=== PATIENT | male | born 1950 | race Caucasian/White ===

== ENCOUNTER 2020-01-31 10:10 | Emergency (ER) | payer MEDICARE, OTHER, SELFPAY ==
[2020-01-31 10:19] VITALS: BP 156/93; PULSE 58; RESP 19; TEMP 36.9; O2SAT 97; BMI 37.6
--- NOTE | 2020-01-31 10:23 | DI.RAD.S_ITS ---
PROCEDURE: XR WRIST LT MIN 3V INDICATIONS: wrist pain TECHNIQUE: 3 views of the wrist were acquired. COMPARISON: None. FINDINGS: Bones: There is a comminuted, displaced fracture of the distal radius which likely extends to the radiocarpal joint. No other fracture or dislocation. Soft tissues: No suspicious soft tissue calcifications. IMPRESSION: Comminuted, displaced, intra-articular distal radial fracture. Dictated by: Karely Moya M.D. on 01/31/2020 at 9:36 Approved by: Karely Moya M.D. on 01/31/2020 at 9:37
--- NOTE | 2020-01-31 10:29 | ED.UPPEXIN ---
HPI - Extremity Injury (Upper) General Chief Complaint: Extremity Injury, Upper Stated Complaint: lt wrist fell out of shower Time Seen by Provider: 01/31/20 10:29 Source: patient Mode of arrival: Family Vehicle Limitations: no limitations History of Present Illness HPI narrative: 69-year-old gentleman with a distant history of colon cancer and bypass surgery had a mechanical fall slipping getting out of the shower landing on an outstretched left wrist. He did bump his head on the wall as he was coming down and has an abrasion to the right elbow from lifting himself up. He did not lose consciousness is not complaining of headache or neck pain, no rib pain, tachypnea chest pain adamantly denies any syncope or presyncope related to the fall. He was able to ambulate is not complaining of axial skeleton pain or lower extremity issues. Related Data Previous Rx's Medication Instructions Recorded hydrocodone-acetaminophen [[place]] 1 tab PO Q8H PRN #10 tab 01/31/20 Review of Systems Review of Systems Narrative: All systems reviewed and are unremarkable except as noted in HPI and below Patient History Medical History (Updated 01/31/20 @ 11:50 by Lou Austin MD) ASCVD (arteriosclerotic cardiovascular disease) (Acute) Colon cancer (Acute) Surgical History (Updated 01/31/20 @ 11:00 by Lou Austin MD) Hx of CABG (Acute) Social History Smoking Status: Never smoker Smoking Status: Never smoker alcohol intake frequency: holidays/special occasions only Substance Use Type: does not use Exam Narrative Exam Narrative: General: Healthy appearing, in no acute distress. Able to give a complete and coherent history. Well-nourished well-developed HEENT: Moist mucous membranes, normal sclera with reactive pupils, abrasion to the right evangelical area with minor swelling Neck: No JVD, supple, no paraspinous muscle tenderness and no cervical spine point tenderness Respiratory: Lungs are clear to auscultation, no wheezing no rales no rhonchi. Full and symmetrical air movement. No bruising or contusion to ribcage or abdominal wall Cardiac: Regular rate and rhythm no murmurs no bruits Abdomen: Soft nontender good bowel tones, no flank pain Skin: Warm and dry, no rashes Neurologic: Grossly neurologically intact with no obvious asymmetries or abnormalities Extremities: Left upper extremity with tenderness at the distal radius, neurovascularly intact, no snuffbox tenderness. Full joint range in mobility at elbow and shoulder bilaterally. Right elbow has an abrasion Psych: Cooperative, appropriate insight and affect Initial Vital Signs Initial Vital Signs: Vital Signs Temperature 98.4 F 01/31/20 10:19 Pulse Rate 58 L 01/31/20 10:19 Respiratory Rate 19 01/31/20 10:19 Blood Pressure 156/93 H 01/31/20 10:19 Pulse Oximetry 97 01/31/20 10:19 Course Course Course Narrative: Splint placement: Left upper extremity, sugar-tong splint for distal radius fracture Splint is placed by ER doctor. Ortho glass with elestic wrap Neurovascularly intact after splint placement Sling given for comfort, remains neurovascularly intact with the sling in place Orders Ordered: ED Orders 01/31/20 10:23 XR wrist LT min 3V Stat Discontinued Medications Acetaminophen (Tylenol) 325 mg PO NOW ONE Stop: 01/31/20 11:33 Last Admin: 01/31/20 11:41 Dose: 325 mg Documented by: BTONER Ibuprofen (Advil) 400 mg PO NOW ONE Stop: 01/31/20 11:33 Last Admin: 01/31/20 11:40 Dose: 400 mg Documented by: BTONER Vital Signs Vital signs: Vital Signs - 8 hr 01/31/20 10:19 Temperature 98.4 F Pulse Rate 58 L Respiratory Rate 19 Blood Pressure 156/93 H Pulse Oximetry 97 MDM - Extremity Injury (Upper) Medical Records Attestation: I reviewed the patient's medical records. Imaging Data wrist: Radiologist's Impression: IMPRESSION: Comminuted, displaced, intra-articular distal radial fracture. Dictated by: Karely Moya M.D. on 01/31/2020 at 9:36 MDM Narrative Medical decision making narrative: 69-year-old gentleman with a mechanical fall on an outstretched hand, non dominant side. Small abrasion to the head however aside from age alone he meets no criteria for CT scanning. We shared decision making we opted to not proceed with head CT 1100 case is reviewed with he will review films and call me back. Patient is currently in minimal pain not requesting pain medications of any sort and declines ice at this time. 1120 Dr Henao reviewed films. Sugar tong splint, call saturday for office follow up Discharge Plan Departure Patient Disposition: Home Clinical Impression: Fracture of distal end of radius, Fall, Contusion of elbow, Contusion of head Instructions: DI for Distal Radius Fracture Activity Restrictions/Additional Instructions: Thank you for coming in today I am sorry that you fell it does not look like you sustained a significant head or spine injury. You did however break your left wrist. , our on-call orthopedist today, has reviewed the films with me and agrees that it is safe to discharge to home. Your placed in a splint here in the emergency department, please leave that splint in place until removed by the orthopedist office For pain control keeping the arm elevated will certainly help, using 400 mg of ibuprofen and 1 [id number] Tylenol every 6 hours will be helpful for pain. For severe pain you can take 1 [place] along with the ibuprofen. The sling is for comfort given the weight of the cast. Please call 's office on Saturday to arrange for a follow-up appointment and definitive care of your distal radius fracture. If you find that the pain is uncontrolled. Your noticing new signs or symptoms, having any other complaints from your fall please return to the ER in a.m. happy to re-evaluate I hope you heal quickly Prescriptions: New hydrocodone-acetaminophen [[place]] 5-325 mg tablet 1 tab PO Q8H PRN (Reason: pain) Qty: 10 RF: 0 Referrals: Cristin Henao MD [Physician] -
[2020-01-31] MEDS: IBUPROFEN 400 MG TABLET PO (11:40)
[2020-01-31] MEDS: ACETAMINOPHEN 325 MG TABLET PO (11:41)
== END 2020-01-31 11:56 | disposition home or self-care (01) ==
PROVIDERS: Emergency Provider Emergency Medicine
DX: S52.502A Unspecified fracture of the lower end of left radius, initial encounter for closed fracture (principal); S50.01XA Contusion of right elbow, initial encounter; S00.93XA Contusion of unspecified part of head, initial encounter; W18.2XXA Fall in (into) shower or empty bathtub, initial encounter
CPT/HCPCS: 73110; 99283

== ENCOUNTER 2020-06-19 09:59 | Emergency (ER) | payer MEDICARE, OTHER, SELFPAY ==
[2020-06-19 10:00] VITALS: BP 174/96; PULSE 53; RESP 16; TEMP 36.4; O2SAT 97; BMI 36.9
[2020-06-19 10:53] LABS: Add Manual Diff / Slide Review NO; Basophils Absolute Auto 100 /uL (0-100); Eosinophils Absolute Auto 300 /uL (0-450); Eosinophils Percent Auto 3.1 % (2-4); Hematocrit 50.8 % (41-53); Hemoglobin 17.2 g/dL (13.5-17.5); Lymphocytes Absolute Auto 1600 /uL (1100-4500); Lymphocytes Percent Auto 17.1 % (25-40); Mean Corpuscular HGB Conc 33.9 % (30-36); Mean Corpuscular Hemoglobin 27.4 PG (26-34); Mean Corpuscular Volume 80.8 fL (80-100); Monocytes Absolute Auto 800 /uL (0-900); Monocytes Percent Auto 8.8 % (3-14); Neutrophils Absolute Auto 6400 /uL (1500-7000); Platelet Count 213 X10^3/uL (150-400); Red Blood Cell Count 6.29 X10^6/uL (4.5-5.9); Red Cell Distribution Width 14.5 % (11.6-14.8); White Blood Cell Count 9.2 X10^3/uL (4.5-11.0)
[2020-06-19 11:20] LABS: Alanine Aminotransferase 23 IU/L (<50); Albumin 4.1 g/dL (3.5-5.0); Albumin Globulin Ratio 1.3 (1.0-2.8); Alkaline Phosphatase 68 U/L (38-126); Aspartate Aminotransferase 29 IU/L (17-59); BUN Creatinine Ratio 17.1 (6-22); Bilirubin Total 1.3 mg/dL (0.2-1.3); Blood Urea Nitrogen 18 mg/dL (9-20); C-Reactive Protein Quant 0.6 mg/dL (<1.0); Calcium 9.9 mg/dL (8.4-10.2); Carbon Dioxide 24 mmol/L (22-32); Chloride 109 mmol/L (98-107); Estimated Glomerular Filt Rate > 60.0 mL/min (>60); Globulin 3.1 g/dL (1.7-4.1); Glucose 104 mg/dL (80-110); HEMOLYSIS < 15 (0-50); Potassium 4.1 mmol/L (3.4-5.1); Sodium 139 mmol/L (137-145); Total Protein 7.2 g/dL (6.3-8.2); Uric Acid 9.7 mg/dL (3.5-8.5)
--- NOTE | 2020-06-19 11:20 | ED_ITS ---
HPI - Extremity Problem <[facility] - Last Filed: 06/19/20 16:48> General Chief complaint: Extremity Problem,Nontraumatic Stated complaint: Thinks he has gout Lt foot Time Seen by Provider: 06/19/20 11:02 Source: patient Mode of arrival: Ambulatory Limitations: no limitations History of Present Illness HPI Narrative: The patient is a very pleasant 69-year-old male nonsmoker with history of CABG x3 who presents with a chief complaint of a painful toe. He states that he has had pain the base of his 1st toe left foot for about 3 weeks. He denies any fevers nausea vomiting or diarrhea. The pain does not radiate, states at that point. He has noticed some diffuse redness along the medial aspect of that digit. Denies any fevers nausea vomiting or diarrhea. He has been traveling thinks he might have gout. He denies any history of gout. He has not taken anything for the pain he has not tried rest ice compression elevation. He denies any falls or trauma. Related Data Previous Rx's Medication Instructions Recorded hydrocodone-acetaminophen [[place]] 1 tab PO Q8H PRN #10 tab 01/31/20 indomethacin 50 mg PO TID 5 Days #15 cap 06/19/20 Allergies Allergy/AdvReac Type Severity Reaction Status Date / Time No Known Drug Allergies Allergy Verified 06/19/20 10:17 Review of Systems <[facility] - Last Filed: 06/19/20 16:48> Review of Systems Narrative: GENERAL: Denies chills, fatigue, malaise, fever, sweats. HEENT: Denies sinus pain, ear pain, sore throat, difficulty swallowing, dizziness. RESPIRATORY: Denies dyspnea, cough, wheezing, hemoptysis, sputum. CARDIOVASCULAR: Denies chest pain, palpitations, orthopnea, edema, GASTROINTESTINAL: Denies nausea, vomiting, abdominal pain, diarrhea, constipation, melena. : Denies dysuria, frequency, incontinence, hematuria, urinary retention. MUSCULOSKELETAL: See HPI SKIN: See HPI NEUROLOGIC: Denies weakness, headache, numbness, change in speech, confusion, seizures, incoordination. PSYCHIATRIC: No concerning psychosocial issues. 12 point review of systems is negative except for those stated above Patient History <[facility] - Last Filed: 06/19/20 16:48> Medical History ASCVD (arteriosclerotic cardiovascular disease) (Acute) Colon cancer (Acute) Surgical History Hx of CABG (Acute) Social History Smoking Status: Never smoker Smoking Status: Never smoker alcohol intake frequency: holidays/special occasions only Substance Use Type: does not use Exam <JAYCE Amin - Last Filed: 06/19/20 16:48> Narrative Exam Narrative: GENERAL: This is a well-nourished, well-developed patient, in no acute distress HEAD: Atraumatic. Normocephalic. No temporal or scalp tenderness. EYES: Pupils equal round and reactive. Extraocular motions intact. No scleral icterus. No injection or drainage. ENT: Nose without bleeding, purulent drainage or septal hematoma. Wearing mask. Airway patent. NECK: Trachea midline. No JVD or lymphadenopathy. Supple, nontender, no meningeal signs. CARDIOVASCULAR: Regular rate and rhythm RESPIRATORY: Clear to auscultation. Breath sounds equal bilaterally. No wheezes, rales, or rhonchi. No cough. Increased respiratory effort. No accessory muscle use. GASTROINTESTINAL: Abdomen soft, non-tender, nondistended. No hepato- splenomegaly, or palpable masses. No guarding. Active bowel sounds all 4 quadrants. EXTREMITIES: Slight pain to palpation left great toe. Able to flex and extend against resistance. Skin exam as noted. Capillary refill less than 2 seconds. Positive pedal pulses. BACK: Nontender without deformity or crepitance. No flank tenderness. NEURO: AOx3. SKIN: Slight erythema noted on medial aspect of 1st MTP, left great toe Initial Vital Signs Initial Vital Signs: Vital Signs Temperature 97.6 F 06/19/20 10:00 Pulse Rate 53 L 06/19/20 10:00 Respiratory Rate 16 06/19/20 10:00 Blood Pressure 174/96 H 06/19/20 10:00 Pulse Oximetry 97 06/19/20 10:00 <Osman Marina MD - Last Filed: 06/19/20 19:05> Initial Vital Signs Initial Vital Signs: Vital Signs Temperature 97.6 F 06/19/20 10:00 Pulse Rate 53 L 06/19/20 10:00 Respiratory Rate 16 06/19/20 10:00 Blood Pressure 174/96 H 06/19/20 10:00 Pulse Oximetry 97 06/19/20 10:00 Course <Ginny AriasCHANNINGP-BC - Last Filed: 06/19/20 16:48> Orders Ordered: ED Orders 06/19/20 10:28 CRP [C-Reactive Protein Quant] Stat Complete Blood Count AUTO DIFF Stat Comprehensive Metabolic Panel Stat Erythrocyte Sedimentation Rate Stat Uric Acid Stat Urine Microscopic Stat Discontinued Medications Ketorolac Tromethamine (Toradol) 15 mg IV NOW ONE Stop: 06/19/20 10:34 Last Admin: 06/19/20 11:33 Dose: 15 mg Documented by: JOVI Methylprednisolone (Solu-Medrol 125 Mg Vial) 125 mg IV NOW ONE Stop: 06/19/20 10:34 Last Admin: 06/19/20 11:34 Dose: 125 mg Documented by: JOVI Reevaluation(s) Reevaluation #1: Patient told nursing that he was concerned about color of his urine. No urinary symptoms, no dysuria urgency or frequency. Urinalysis obtained, normal micro. States it was dark. When I was speaking with patient, he declined any further concerns beyond his foot. Discussed urinalysis results with patient. Vital Signs Vital signs: Vital Signs - 8 hr 06/19/20 11:53 Pulse Rate 54 L Respiratory Rate 18 Blood Pressure 151/77 H Pulse Oximetry 100 <Osman Marina MD - Last Filed: 06/19/20 19:05> Orders Ordered: ED Orders 06/19/20 10:28 CRP [C-Reactive Protein Quant] Stat Complete Blood Count AUTO DIFF Stat Comprehensive Metabolic Panel Stat Erythrocyte Sedimentation Rate Stat Uric Acid Stat Urine Microscopic Stat Discontinued Medications Ketorolac Tromethamine (Toradol) 15 mg IV NOW ONE Stop: 06/19/20 10:34 Last Admin: 06/19/20 11:33 Dose: 15 mg Documented by: JOVI Methylprednisolone (Solu-Medrol 125 Mg Vial) 125 mg IV NOW ONE Stop: 06/19/20 10:34 Last Admin: 06/19/20 11:34 Dose: 125 mg Documented by: BTONER Vital Signs Vital signs: Vital Signs - 8 hr 06/19/20 11:53 Pulse Rate 54 L Respiratory Rate 18 Blood Pressure 151/77 H Pulse Oximetry 100 MDM - Extremity (Nontraumatic) <MARLENA Amin- - Last Filed: 06/19/20 16:48> Lab Data Result diagrams: 06/19/20 10:28 06/19/20 10:28 Labs: Lab Results 06/19/20 06/19/20 06/19/20 Range/Units 10:28 10:28 10:28 WBC 9.2 (4.5-11.0) X10^3/uL RBC 6.29 H (4.5-5.9) X10^6/uL Hgb 17.2 (13.5-17.5) g/dL Hct 50.8 (41-53) % MCV 80.8 (80-100) fL MCH 27.4 (26-34) PG MCHC 33.9 (30-36) % RDW 14.5 (11.6-14.8) % Plt Count 213 (150-400) X10^3/uL Neut % (Auto) 70.0 (50-75) % Lymph % (Auto) 17.1 L (25-40) % [place] % (Auto) 8.8 (3-14) % Eos % (Auto) 3.1 (2-4) % Baso % (Auto) 1.0 (0-2) % Neut # (Auto) 6400 (5452-4639) /uL Lymph # (Auto) 1600 (9142-4223) /uL [place] # (Auto) 800 (0-900) /uL Eos # (Auto) 300 (0-450) /uL Baso # (Auto) 100 (0-100) /uL ESR 1 (0-15) MM/HR Sodium 139 (137-145) mmol/L Potassium 4.1 (3.4-5.1) mmol/L Chloride 109 H (98-107) mmol/L Carbon Dioxide 24 (22-32) mmol/L BUN 18 (9-20) mg/dL Creatinine 1.05 (0.66-1.25) mg/dL Estimated GFR > 60.0 (>60) mL/min BUN/Creatinine Ratio 17.1 (6-22) Glucose 104 (80-110) mg/dL Uric Acid 9.7 H (3.5-8.5) mg/dL Calcium 9.9 (8.4-10.2) mg/dL Total Bilirubin 1.3 (0.2-1.3) mg/dL AST 29 (17-59) IU/L ALT 23 (<50) IU/L Alkaline Phosphatase 68 (38-126) U/L C-Reactive Protein 0.6 (<1.0) mg/dL Total Protein 7.2 (6.3-8.2) g/dL Albumin 4.1 (3.5-5.0) g/dL Globulin 3.1 (1.7-4.1) g/dL Albumin/Globulin Ratio 1.3 (1.0-2.8) Urine RBC None seen (0-5/HPF) Urine WBC 0-1/hpf (0-5/HPF) Ur Squamous Epith Cells 0-1 /hpf (0-5/HPF) Urine Bacteria None seen (None) Ur Culture Indicated? Cult not indicated Urine Dip Bedside Urine Glucose Negative Bedside Urine Bilirubin - Negative Bedside Urine Ketone - Negative Urine Specific [place] 1.030 Bedside Urine Occult Blood ++ Bedside Urine pH 5.0 Bedside Urine Protein +/- 15 Bedside Urine Urobilinogen - Negative Bedside Urine Nitrite - Negative Bedside Urine Leukocytes - Negative Esterase MDM Narrative Medical decision making narrative: The patient is a 69-year-old male who presents with a chief complaint of left-sided great toe pain. His exam correlates with gout, as does his lab work. Low suspicion of septic joint as the patient has full range of motion, no fever, normal WBC count. Patient presents 3 weeks into his course of gout, which decreased his ability to use colchicine. Will place patient on indomethacin. He has a primary care two days, I discussed keeping that appointment. Discussed coming back to emergency department for any acute concerns. Patient Has No questionesor concerns upon discharge and state's understanding of return precautions as well as follow-up care. I discussed not combining his indomethacin with any other NSAIDs such as Tylenol Motrin etcetera. <Osman Marina MD - Last Filed: 06/19/20 19:05> Lab Data Labs: Lab Results 06/19/20 06/19/20 06/19/20 Range/Units 10:28 10:28 10:28 WBC 9.2 (4.5-11.0) X10^3/uL RBC 6.29 H (4.5-5.9) X10^6/uL Hgb 17.2 (13.5-17.5) g/dL Hct 50.8 (41-53) % MCV 80.8 (80-100) fL MCH 27.4 (26-34) PG MCHC 33.9 (30-36) % RDW 14.5 (11.6-14.8) % Plt Count 213 (150-400) X10^3/uL Neut % (Auto) 70.0 (50-75) % Lymph % (Auto) 17.1 L (25-40) % [place] % (Auto) 8.8 (3-14) % Eos % (Auto) 3.1 (2-4) % Baso % (Auto) 1.0 (0-2) % Neut # (Auto) 6400 (3673-1197) /uL Lymph # (Auto) 1600 (4352-6480) /uL [place] # (Auto) 800 (0-900) /uL Eos # (Auto) 300 (0-450) /uL Baso # (Auto) 100 (0-100) /uL ESR 1 (0-15) MM/HR Sodium 139 (137-145) mmol/L Potassium 4.1 (3.4-5.1) mmol/L Chloride 109 H (98-107) mmol/L Carbon Dioxide 24 (22-32) mmol/L BUN 18 (9-20) mg/dL Creatinine 1.05 (0.66-1.25) mg/dL Estimated GFR > 60.0 (>60) mL/min BUN/Creatinine Ratio 17.1 (6-22) Glucose 104 (80-110) mg/dL Uric Acid 9.7 H (3.5-8.5) mg/dL Calcium 9.9 (8.4-10.2) mg/dL Total Bilirubin 1.3 (0.2-1.3) mg/dL AST 29 (17-59) IU/L ALT 23 (<50) IU/L Alkaline Phosphatase 68 (38-126) U/L C-Reactive Protein 0.6 (<1.0) mg/dL Total Protein 7.2 (6.3-8.2) g/dL Albumin 4.1 (3.5-5.0) g/dL Globulin 3.1 (1.7-4.1) g/dL Albumin/Globulin Ratio 1.3 (1.0-2.8) Urine RBC None seen (0-5/HPF) Urine WBC 0-1/hpf (0-5/HPF) Ur Squamous Epith Cells 0-1 /hpf (0-5/HPF) Urine Bacteria None seen (None) Ur Culture Indicated? Cult not indicated Urine Dip Bedside Urine Glucose Negative Bedside Urine Bilirubin - Negative Bedside Urine Ketone - Negative Urine Specific [place] 1.030 Bedside Urine Occult Blood ++ Bedside Urine pH 5.0 Bedside Urine Protein +/- 15 Bedside Urine Urobilinogen - Negative Bedside Urine Nitrite - Negative Bedside Urine Leukocytes - Negative Esterase Discharge Plan Departure Patient Disposition: Home Clinical Impression: Gout Qualifiers: Gout site: toe Gout etiology: unspecified cause Chronicity: acute Laterality: left Qualified Code(s): M10.9 - Gout, unspecified Discharge Date/Time: 06/19/20 12:41 Instructions: Gout (Alternative Therapy), DI for Gout, Higher Vitamin C Intake Associated With Lower Risk of Gout Activity Restrictions/Additional Instructions: Thank you for trusting us with your care today. Your labs and exam are suspicious for gout. I sent a prescription of indomethacin to [facility] in [place]. Please take this 3 times a day. Take it with food. Do not combine with any other NSAIDs such as Aleve ibuprofen etcetera. Please follow-up with primary care provider as scheduled in a few days. Please come back to the emergency department for any acute concerns. Prescriptions: New indomethacin 50 mg capsule 50 mg PO TID 5 Days Qty: 15 RF: 0 No Action hydrocodone-acetaminophen [[place]] 5-325 mg tablet 1 tab PO Q8H PRN (Reason: pain) Qty: 10 RF: 0 Referrals: Keny Soria MD [Non-Staff] -
[2020-06-19] MEDS: KETOROLAC 60 MG/2 ML VIAL 15 MG IV (11:33)
[2020-06-19] MEDS: methylPREDNISolone 125 MG/2 ML VIAL IV (11:34)
[2020-06-19 11:36] LABS: Erythrocyte Sedimentation Rate 1 MM/HR (0-15)
[2020-06-19 11:47] LABS: Bacteria Urine None Seen; RBC Urine None Seen (0-5/HPF)
[2020-06-19 11:53] VITALS: BP 151/77; PULSE 54; RESP 18; O2SAT 100
[2020-06-19 12:08] LABS: Culture Indicated Urine Cult Not Indicated; Squamous Epithelial Cell Urine 0-1 /HPF (0-5/HPF); WBC Urine 0-1/HPF (0-5/HPF)
== END 2020-06-19 12:41 | disposition home or self-care (01) ==
PROVIDERS: Emergency Medicine; Emergency Provider Nurse Practitioner Family
DX: M10.9 Gout, unspecified (principal); I25.10 Atherosclerotic heart disease of native coronary artery without angina pectoris; R82.90 Unspecified abnormal findings in urine
CPT/HCPCS: 36415; 80053; 81003; 81015; 84550; 85025; 85651; 86140; 96374; 96375; 99284; J1885; J2930

== ENCOUNTER 2020-06-25 08:58 | Emergency (ER) | payer MEDICARE, OTHER, SELFPAY ==
[2020-06-25] VITALS (16 sets, daily range): BP systolic 134–192; BP diastolic 64–97; PULSE 32–62; RESP 16–33; TEMP 36.5; O2SAT 95–99; BMI 37.6
--- NOTE | 2020-06-25 09:27 | DI.CT.S_ITS ---
PROCEDURE: CT ABDOMEN PELVIS WO CON INDICATIONS: LL back pain similar to previous kidney stones. TECHNIQUE: Noncontrast 5 mm thick sections acquired from the diaphragms to the symphysis. 5 mm thick coronal and sagittal reformats were then performed. For radiation dose reduction, the following was used: automated exposure control, adjustment of mA and/or kV according to patient size. COMPARISON: None. FINDINGS: Image quality: Excellent. Lung bases: Lung bases are clear. Heart size is normal. Sternotomy wires are partially seen. Urinary system: There is a 3 mm obstructing stone seen within the distal left ureter, as on series 2, image 71. There is associated mild to moderate left-sided hydroureter and hydronephrosis. Left-sided perinephric fat stranding can be seen. No nonobstructing kidney stones are seen. Both kidneys are normal in size. Bladder wall thickness is normal; no calcified bladder stones. Other solid organs: Liver is normal in size. Patchy fatty liver infiltration can be seen. Gallbladder wall is not thickened. Pancreas is normal in contours. Spleen is normal in size. A few calcified granulomas can be seen within the spleen anteriorly. No adrenal nodules. Peritoneum and bowel: Unenhanced bowel loops demonstrate normal wall thickness and caliber. No free fluid or air. Colonic diverticulosis is seen, without findings of active diverticulitis. Nodes and vessels: No retroperitoneal or mesenteric adenopathy by size criteria. Aorta and inferior vena cava are normal in caliber. Abdominal wall: No ventral hernias. Rectus diastasis is seen. Pelvis: No free pelvic fluid. No inguinal adenopathy. Bilateral fat containing inguinal hernias can be seen. Bones: No suspicious bony lesions. No vertebral body compression fractures. Mild levoconvex scoliotic curvature is noted. Bilateral pars defects are seen at L5, with associated mild grade 1 anterolisthesis at L5-S1. Degenerative changes are seen throughout, which are most prominent involving the lower lumbar spine. IMPRESSION: 3 mm obstructing stone seen within the distal left ureter, with associated mild to moderate left-sided hydroureter and hydronephrosis. Left-sided perinephric fat stranding is also seen. No nonobstructing kidney stones are seen. Incidental note is made of: Sternotomy wires Patchy fatty liver infiltration Splenic calcified granulomas Rectus diastasis Diverticulosis, without active diverticulitis Bilateral L5 pars defects, with associated mild grade 1 L5 anterolisthesis. Levoconvex scoliotic curvature Bilateral fat containing inguinal hernias Dictated by: Gilberto Burgos M.D. on 06/25/2020 at 9:18 Approved by: Gilberto Burgos M.D. on 06/25/2020 at 9:23
[2020-06-25 09:35] LABS: Add Manual Diff / Slide Review NO; Bacteria Urine None Seen; Basophils Absolute Auto 100 /uL (0-100); Basophils Percent Auto 0.6 % (0-2); Eosinophils Absolute Auto 300 /uL (0-450); Eosinophils Percent Auto 2.7 % (2-4); Hematocrit 50.3 % (41-53); Lymphocytes Absolute Auto 1000 /uL (1100-4500); Lymphocytes Percent Auto 10.9 % (25-40); Mean Corpuscular HGB Conc 33.8 % (30-36); Mean Corpuscular Hemoglobin 27.8 PG (26-34); Mean Corpuscular Volume 82.1 fL (80-100); Monocytes Absolute Auto 500 /uL (0-900); Monocytes Percent Auto 5.7 % (3-14); Neutrophils Absolute Auto 7400 /uL (1500-7000); Neutrophils Percent Auto 80.1 % (50-75); Platelet Count 183 X10^3/uL (150-400); Red Blood Cell Count 6.12 X10^6/uL (4.5-5.9); Red Cell Distribution Width 14.4 % (11.6-14.8); WBC Urine None Seen (0-5/HPF); White Blood Cell Count 9.2 X10^3/uL (4.5-11.0)
[2020-06-25] MEDS: KETOROLAC 60 MG/2 ML VIAL 30 MG IV (09:36)
[2020-06-25] MEDS: SODIUM CHLORIDE 0.9% 1,000 ML 150 ML IV (09:37)
--- NOTE | 2020-06-25 09:40 | ED_ITS ---
HPI - Male Genitourinary General Chief complaint: Urogenital-Male Stated complaint: states kidney stone Time Seen by Provider: 06/25/20 09:40 Source: patient Mode of arrival: Ambulatory Limitations: no limitations History of Present Illness HPI Narrative: CC: Left lower back flank pain HPI: The patient has a past history of having kidney stones. This morning he developed Left-sided, lower back pain at approximately 5:00 a.m. in the morning. It did not radiate anywhere. The pain and discomfort was 7/10 in intensity. It was identical to previous pain and discomfort that he has had with kidney stones. He denies being on any blood thinners. He was evaluated for gout 6 days ago and his blood pressure medicine changed. He denies any fall or injury. His pain and discomfort did not radiate into his testicles. He had profuse sweats with the discomfort but denies any fever chills. He has had no headache chest pain cough shortness of breath awareness of any irregular heartbeat palpitations dizziness abdominal pain nausea vomiting diarrhea. He has not noticed any blood in his urine. Related Data Home Medications Medication Instructions Recorded Confirmed allopurinol 100 mg PO DAILY 06/25/20 06/25/20 amlodipine 2.5 mg PO DAILY 06/25/20 06/25/20 aspirin [Adult Low Dose Aspirin] 81 mg PO DAILY 06/25/20 06/25/20 colchicine [Colcrys] 0.6 mg PO DAILY 06/25/20 06/25/20 Previous Rx's Medication Instructions Recorded oxycodone 5 mg PO Q6H PRN #10 tab 06/25/20 rivaroxaban [Xarelto] 20 mg PO DAILY #10 tab 06/25/20 tamsulosin [Flomax] 0.4 mg PO DAILY #7 cap 06/25/20 tramadol 50 mg PO Q6H PRN #12 tab 06/25/20 Allergies Allergy/AdvReac Type Severity Reaction Status Date / Time [id number] Reductase AdvReac Intermediate Muscle Pain Verified 06/25/20 09:42 Inhibitor Review of Systems Review of Systems Narrative: Review of systems were all negative except for those mentioned in the history of present illness. Patient History Medical History ASCVD (arteriosclerotic cardiovascular disease) (Acute) Colon cancer (Acute) Hypertension (Acute) Kidney stone (Acute) Surgical History Hx of CABG (Acute) Social History Smoking Status: Never smoker Smoking Status: Never smoker alcohol intake frequency: holidays/special occasions only Substance Use Type: does not use Exam Narrative Exam Narrative: PHYSICAL EXAM: CONSTITUTIONAL: Awake, Alert, Oriented, Coherent, Cooperative in NAD. Does not appear toxic or ill. The patient states that he is much more comfortable after he was administered normal saline HEAD: AT/NC EENT: PERRL, FROM of eyes,. NOSE:No epistaxis or nasal drainage MOUTH:Oral mucosa is moist and pink, posterior pharynx is without erythema or exudate. NECK: Supple, no obvious JVD, Trachea is midline without stridor, no palpable LN. SPINE: Palpationof the cervical, Thoracic, Lumbar or Sacral spine reveals no gross deformity or tenderness. No CVA tenderness. THORAX: No deformity, retractions, chest wall tenderness. LUNGS: Clear, symmetrical breath sounds without respiratory distress. HEART: Heart tones are irregularly irregular with a variable S1-S2 no appreciable murmur. Bradycardic rate. ABDOMEN: Soft, non-tender, no guarding, rebound, rigidity or palpable mass. EXTREMITIES: No edema, deformity, tenderness or cyanosis. SKIN: No rash, bruising, petechiae or purpura. NEURO: Awake, alert, oriented, conversive, cranial nerves II-XII are symmetrical , moves all 4 extremities and is ambulatory. MENTAL HEALTH: Does not appear anxious or depressed. Initial Vital Signs Initial Vital Signs: Vital Signs Temperature 97.7 F 06/25/20 09:15 Pulse Rate 62 06/25/20 09:15 Respiratory Rate 22 06/25/20 09:15 Blood Pressure 192/88 H 06/25/20 09:15 Pulse Oximetry 99 06/25/20 09:15 Scores CHADS-VASc Congestive heart failure: no Hypertension: yes Age 75 years or older: no Diabetes mellitus: no Stroke, TIA, or TE: no Vascular disease: no Age 65 to 74 years: yes Sex category (female): Male CHADS-VASc Score: 2 Course Course Course Narrative: 0959: pain free after toradol. 1000: no anticoagulation. No history of atrial fibrillation. 1045: CT wscan of abdomen revealed: IMPRESSION: 3 mm obstructing stone seen within the distal left ureter, with associated mild to moderate left-sided hydroureter and hydronephrosis. Left-sided perinephric fat stranding is also seen. No nonobstructing kidney stones are seen. Incidental note is made of: Sternotomy wires Patchy fatty liver infiltration Splenic calcified granulomas Rectus diastasis Diverticulosis, without active diverticulitis Bilateral L5 pars defects, with associated mild grade 1 L5 anterolisthesis. Levoconvex scoliotic curvature Bilateral fat containing inguinal hernias Dictated by: Gilberto Burgos M.D. on 06/25/2020 at 9:18 Approved by: Gilberto Burgos M.D. on 06/25/2020 at 9:23 The patient's white blood count is not elevated and the patient's urine reveals only red blood cells without white blood cells no culture and sensitivity is indicated. The patient will be discharged home and advised to follow-up with Urology as well as his primary care physician to be referred to cardiology for a repeat EKG, evaluation of his atrial fibrillation with possible Holter monitor and echocardiogram. 1055: The patient states that he saw in [place], and his developer relations manager is here in [facility]). He has no urologist. He will be referred to Dr. Powell for his ureterolithiasis. I have placed a call in to or whoever is on-call for him to discuss whether not the patient should be anticoagulated with his new onset atrial fibri llation. His Chads Score is 2. 1143: I discussed the patient with Dr. Rothman developer relations manager covering for Dr. Cardenas. The patient is potentially high risk for a stroke with his history of atherosclerotic coronary artery disease, previous colon cancer, age of 69, new onset atrial fibrillation with a chads score of 2. The patient will be started on Xarelto 20 mg once a day until he can be seen in follow-up by his developer relations manager. Orders Ordered: Discontinued Medications Acetaminophen (Tylenol) 975 mg PO NOW ONE Stop: 06/25/20 11:14 Last Admin: 06/25/20 11:18 Dose: 975 mg Documented by: CYNTHIA Sodium Chloride (Normal Saline 0.9%) 1,000 mls @ 150 mls/hr IV CONT GUTIERREZ Last Infusion: 06/25/20 12:20 Dose: 0 mls/hr Documented by: Admin: 06/25/20 09:37 Dose: 150 mls/hr Documented by: CYTNHIA Ketorolac Tromethamine (Toradol) 30 mg IV NOW ONE Stop: 06/25/20 09:27 Last Admin: 06/25/20 09:36 Dose: 30 mg Documented by: CYNTHIA Rivaroxaban (Xarelto) 20 mg PO NOW ONE Stop: 06/25/20 11:43 Last Admin: 06/25/20 12:02 Dose: 20 mg Documented by: FRANCES Tamsulosin HCl (Flomax) 0.4 mg PO NOW ONE Stop: 06/25/20 11:19 Last Admin: 06/25/20 11:36 Dose: 0.4 mg Documented by: MARIELLA Vital Signs Vital signs: Vital Signs - 8 hr 06/25/20 09:15 06/25/20 09:23 06/25/20 09:30 Temperature 97.7 F Pulse Rate 62 43 L 41 L Respiratory Rate 22 19 21 Blood Pressure 192/88 H 185/97 H Pulse Oximetry 99 98 97 06/25/20 09:45 06/25/20 10:00 06/25/20 10:15 Temperature Pulse Rate 41 L 41 L 33 L Respiratory Rate 16 24 Blood Pressure 164/79 H 152/80 H 164/89 H Pulse Oximetry 96 97 97 06/25/20 10:30 06/25/20 10:45 06/25/20 11:00 Temperature Pulse Rate 59 L 33 L 34 L Respiratory Rate 20 20 22 Blood Pressure 160/73 H 150/74 H 160/72 H Pulse Oximetry 97 97 99 06/25/20 11:15 06/25/20 11:30 06/25/20 11:31 Temperature Pulse Rate 32 L 41 L 41 L Respiratory Rate 20 22 21 Blood Pressure 167/77 H 174/74 H Pulse Oximetry 95 MDM - Male Genitourinary Medical Records Attestation: I reviewed the patient's medical records. Lab Data Attestation: I reviewed the patient's lab results. Result diagrams: 06/25/20 09:30 06/25/20 09:30 Labs: Lab Results 06/25/20 06/25/20 06/25/20 Range/Units 09:30 09:30 09:30 WBC 9.2 (4.5-11.0) X10^3/uL RBC 6.12 H (4.5-5.9) X10^6/uL Hgb 17.0 (13.5-17.5) g/dL Hct 50.3 (41-53) % MCV 82.1 (80-100) fL MCH 27.8 (26-34) PG MCHC 33.8 (30-36) % RDW 14.4 (11.6-14.8) % Plt Count 183 (150-400) X10^3/uL Neut % (Auto) 80.1 H (50-75) % Lymph % (Auto) 10.9 L (25-40) % [place] % (Auto) 5.7 (3-14) % Eos % (Auto) 2.7 (2-4) % Baso % (Auto) 0.6 (0-2) % Neut # (Auto) 7400 H (1186-9005) /uL Lymph # (Auto) 1000 L (8218-3890) /uL [place] # (Auto) 500 (0-900) /uL Eos # (Auto) 300 (0-450) /uL Baso # (Auto) 100 (0-100) /uL PT 11.4 (10.1-12.7) SECONDS INR 1.0 (0.9-1.3) APTT 30 (26.4-36.2) SECONDS Sodium 141 (137-145) mmol/L Potassium 4.0 (3.4-5.1) mmol/L Chloride 112 H (98-107) mmol/L Carbon Dioxide 25 (22-32) mmol/L BUN 28 H (9-20) mg/dL Creatinine 1.52 H (0.66-1.25) mg/dL Estimated GFR 45.6 L (>60) mL/min BUN/Creatinine Ratio 18.4 (6-22) Glucose 143 H (80-110) mg/dL Calcium 9.5 (8.4-10.2) mg/dL Total Bilirubin 0.9 (0.2-1.3) mg/dL AST 36 (17-59) IU/L ALT 49 (<50) IU/L Alkaline Phosphatase 69 (38-126) U/L Total Protein 6.7 (6.3-8.2) g/dL Albumin 4.0 (3.5-5.0) g/dL Globulin 2.7 (1.7-4.1) g/dL Albumin/Globulin Ratio 1.5 (1.0-2.8) Urine RBC (0-5/HPF) Urine WBC (0-5/HPF) Urine Bacteria (None) Hyaline Casts (None) Ur Culture Indicated? 06/25/20 Range/Units 09:30 WBC (4.5-11.0) X10^3/uL RBC (4.5-5.9) X10^6/uL Hgb (13.5-17.5) g/dL Hct (41-53) % MCV (80-100) fL MCH (26-34) PG MCHC (30-36) % RDW (11.6-14.8) % Plt Count (150-400) X10^3/uL Neut % (Auto) (50-75) % Lymph % (Auto) (25-40) % [place] % (Auto) (3-14) % Eos % (Auto) (2-4) % Baso % (Auto) (0-2) % Neut # (Auto) (8434-6468) /uL Lymph # (Auto) (4114-8301) /uL [place] # (Auto) (0-900) /uL Eos # (Auto) (0-450) /uL Baso # (Auto) (0-100) /uL PT (10.1-12.7) SECONDS INR (0.9-1.3) APTT (26.4-36.2) SECONDS Sodium (137-145) mmol/L Potassium (3.4-5.1) mmol/L Chloride (98-107) mmol/L Carbon Dioxide (22-32) mmol/L BUN (9-20) mg/dL Creatinine (0.66-1.25) mg/dL Estimated GFR (>60) mL/min BUN/Creatinine Ratio (6-22) Glucose (80-110) mg/dL Calcium (8.4-10.2) mg/dL Total Bilirubin (0.2-1.3) mg/dL AST (17-59) IU/L ALT (<50) IU/L Alkaline Phosphatase (38-126) U/L Total Protein (6.3-8.2) g/dL Albumin (3.5-5.0) g/dL Globulin (1.7-4.1) g/dL Albumin/Globulin Ratio (1.0-2.8) Urine RBC 10-30/hpf H (0-5/HPF) Urine WBC None seen (0-5/HPF) Urine Bacteria None seen (None) Hyaline Casts 1-5/lpf (None) Ur Culture Indicated? Cult not indicated Urine Dip Bedside Urine Glucose Negative Bedside Urine Bilirubin + 1 Bedside Urine Ketone - Negative Urine Specific [place] 1.030 Bedside Urine Occult Blood +++ Bedside Urine pH 6.0 Bedside Urine Protein ++ 100 Bedside Urine Urobilinogen - Negative Bedside Urine Nitrite - Negative Bedside Urine Leukocytes - Negative Esterase ECG Data Attestation: I personally reviewed and interpreted this ECG as follows: Interpretation: The patient's EKG obtained at 9:27 a.m. reveals a atrial fibrillation with slow ventricular response there is an occasional PVC present. The ventricular rate is 47 QRS is 94 milliseconds QTC [address] seg ments are nonspecific there are no acute diagnostic ST segment changes. The patient's blood pressure is very good an elevated even though he has bradycardia. Discharge Plan Departure Patient Disposition: Home Clinical Impression: Bradycardia, Acute left flank pain Atrial fibrillation Qualifiers: Atrial fibrillation type: unspecified Qualified Code(s): I48.91 - Unspecified atrial fibrillation Hypertension Qualifiers: Hypertension type: essential hypertension Qualified Code(s): I10 - Essential (primary) hypertension Discharge Date/Time: 06/25/20 12:20 Instructions: DI for Kidney Stones, DI for Atrial Fibrillation Activity Restrictions/Additional Instructions: 1. Your CT scan reveals that you have a 3 mm stone in your distal left ureter which you should be able to pass spontaneously. 2. Your EKG reveals that you have an irregular irregular heartbeat consistent with atrial fibrillation which in some people increases the risk of developing a stroke. For that reason we are starting you on a blood thinner Xarelto 20 mg that you take daily until you are so able to be seen by Dr. Cardenas to further evaluate, your heart rhythm, heart rate, and blood pressure. You may need to have an echocardiogram and Holter monitor. 3. For your kidney stone you have been referred to Dr. Powell. The following pain medication cocktail is his recommendations for controlling your pain and discomfort from your stone. 4. Take the Flomax 0.4 mg daily until gone 5. Take Tylenol 500 mg every 4 hours or 1 g every 6 hours for pain and discomfort as needed. 6. For pain uncontrolled by the Tylenol take tramadol 50 mg tablets, 1-2 tabs every 6 hours. 7. For severe pain caused by the kidney stone unrelieved by the tramadol and Tylenol, take oxycodone 5 mg every 6 hours as a rescue medicine. 8. For pain on relieved by this cocktail, the development of fever, persistent nausea and vomiting you need to return to the emergency department to be further evaluated. 9. If you develop dizziness, passing out, head injury, chest pain, shortness of breath you need to return to the emergency department. Prescriptions: New tamsulosin [Flomax] 0.4 mg capsule 0.4 mg PO DAILY Qty: 7 RF: 0 tramadol 50 mg tablet 50 mg PO Q6H PRN (Reason: pain) Qty: 12 RF: 0 oxycodone 5 mg tablet 5 mg PO Q6H PRN (Reason: pain) Qty: 10 RF: 0 Xarelto 10 mg tablet 20 mg PO DAILY Qty: 10 RF: 1 No Action amlodipine 2.5 mg tablet 2.5 mg PO DAILY RF: 0 allopurinol 100 mg tablet 100 mg PO DAILY RF: 0 colchicine [Colcrys] 0.6 mg tablet 0.6 mg PO DAILY RF: 0 aspirin [Adult Low Dose Aspirin] 81 mg Tablet,Delayed Release (Dr/Ec) 81 mg PO DAILY RF: 0 Referrals: Ti Powell MD [Physician] - (left distal ureteral stone)
[2020-06-25 09:41] LABS: Culture Indicated Urine Cult Not Indicated; Hyaline Casts Urine 1-5/LPF; RBC Urine 10-30/HPF (0-5/HPF)
[2020-06-25 09:42] LABS: Prothrombin Time 11.4 SECONDS (10.1-12.7)
[2020-06-25 09:45] LABS: PTT Partial Thromboplastin Tim 30 SECONDS (26.4-36.2)
[2020-06-25 09:47] LABS: Alanine Aminotransferase 49 IU/L (<50); Albumin Globulin Ratio 1.5 (1.0-2.8); Alkaline Phosphatase 69 U/L (38-126); Aspartate Aminotransferase 36 IU/L (17-59); BUN Creatinine Ratio 18.4 (6-22); Bilirubin Total 0.9 mg/dL (0.2-1.3); Blood Urea Nitrogen 28 mg/dL (9-20); Calcium 9.5 mg/dL (8.4-10.2); Carbon Dioxide 25 mmol/L (22-32); Chloride 112 mmol/L (98-107); Estimated Glomerular Filt Rate 45.6 mL/min (>60); Globulin 2.7 g/dL (1.7-4.1); Glucose 143 mg/dL (80-110); HEMOLYSIS < 15 (0-50); Sodium 141 mmol/L (137-145); Total Protein 6.7 g/dL (6.3-8.2)
--- NOTE | 2020-06-25 10:31 | PC.NURSE ---
Pt w/ new onset afib. Noted change in medications (d/c lisinopril, start amiodarone yesterday). Denies chest pain / shortness of breath.
--- NOTE | 2020-06-25 11:13 | PC.NURSE ---
Pt c/o increased pain 4/10. Orders obtained for morphine and zofran. By the time I returned to room, pain had subsided and was 1/10 w/ mild nausea. Medicated w/ zofran for nausea. Pt requested tylenol. Order obtained.
[2020-06-25] MEDS: ONDANSETRON 4 MG/2 ML INJ (11:16)
[2020-06-25] MEDS: ACETAMINOPHEN 325 MG TABLET 975 MG PO (11:18)
[2020-06-25] MEDS: TAMSULOSIN 0.4 MG CAPSULE PO (11:36)
[2020-06-25] MEDS: RIVAROXABAN 10 MG TABLET 20 MG PO (12:02)
== END 2020-06-25 12:20 | disposition home or self-care (01) ==
PROVIDERS: Emergency Provider Emergency Medicine
DX: N20.0 Calculus of kidney (principal); Z87.442 Personal history of urinary calculi; R00.1 Bradycardia, unspecified; R10.9 Unspecified abdominal pain; I48.91 Unspecified atrial fibrillation; I10 Essential (primary) hypertension
CPT/HCPCS: 36415; 74176; 80053; 81003; 81015; 85025; 85610; 85730; 93005; 96361; 96374; 99284; 99285; J1885; J2405

== ENCOUNTER → 2020-07-14 09:57 | Outpatient (CLI) | payer MEDICARE, OTHER, SELFPAY ==
--- NOTE | 2020-07-14 09:58 | DI.RAD.S_ITS ---
PROCEDURE: XR KUB INDICATIONS: Renal colic TECHNIQUE: One view of the abdomen acquired. COMPARISON: [facility], CT, CT ABDOMEN PELVIS WO CON, 06/25/2020, 9:55. FINDINGS: Surgical changes and devices: None. Bowel: Bowel gas pattern is normal. Curvilinear calcification projects in left upper quadrant presumably within splenic artery. Multiple left pelvic calcifications, sub 5 mm in size, which could be phleboliths although unclear if any of these correspond to the distal left ureteral calculus on the prior CT study. Bones: . Spondylytic changes and facet arthropathy. IMPRESSION: Multiple sub 5 mm left pelvic calcifications as above. Dictated by: Luis Fernando Abad M.D. on 07/14/2020 at 13:02 Approved by: Luis Fernando Abad M.D. on 07/14/2020 at 13:05
[2020-07-29 13:53] LABS: Uric Acid 100%
[2020-07-29 13:54] LABS: Photo SEE EMR
== END ==
PROVIDERS: PCP Family Medicine; Referring Provider Family Medicine; Visit Provider Specialist
DX: R93.5 Abnormal findings on diagnostic imaging of other abdominal regions, including retroperitoneum (principal); N23 Unspecified renal colic; M54.5 Low back pain; N40.1 Benign prostatic hyperplasia with lower urinary tract symptoms; N13.8 Other obstructive and reflux uropathy; Z87.442 Personal history of urinary calculi
CPT/HCPCS: 74018; 81002; 82365; 99214

== ENCOUNTER → 2020-09-01 09:32 | Outpatient (CLI) | payer MEDICARE, OTHER, SELFPAY ==
--- NOTE | 2020-09-01 09:39 | DI.RAD.S_ITS ---
PROCEDURE: XR KUB INDICATIONS: kidney stones TECHNIQUE: One view of the abdomen acquired. COMPARISON: [facility], CT, CT ABDOMEN PELVIS WO CON, 06/25/2020, 9:55. [facility], CR, XR KUB, 07/14/2020, 8:57. FINDINGS: Surgical changes and devices: None. Bowel: Bowel gas pattern is normal. Soft tissues: 2 phleboliths are redemonstrated within the left hemipelvis. The 2 mm calcification to the left of the sacrum visualized on the plain film dated July 14, 2020 is not visualized on the current study. Bones: No suspicious bony lesions. IMPRESSION: 1. Unchanged pelvic phleboliths. 2. Questionable passage of a left ureteral calculus adjacent to the sacrum visualized on the study dated July 14, 2020. However, this calculus may be obscured by overlying stool in the rectosigmoid. Dictated by: Karely Moya M.D. on 09/01/2020 at 10:55 Approved by: Karely Moya M.D. on 09/01/2020 at 10:58
[2020-09-01 11:01] LABS: Calcium 9.7 mg/dL (8.4-10.2); Uric Acid 5.9 mg/dL (3.5-8.5)
[2020-09-02 07:45] LABS: Parathyroid Hormone Int 43 pg/mL (15-65)
== END ==
PROVIDERS: PCP Family Medicine; Referring Provider Specialist; Visit Provider Specialist
DX: N20.0 Calculus of kidney (principal)
CPT/HCPCS: 36415; 74018; 82310; 83970; 84550

== ENCOUNTER 2020-11-28 16:31 | Emergency (ER) | payer MEDICARE, OTHER, SELFPAY ==
[2020-11-28] VITALS (18 sets, daily range): BP systolic 149–209; BP diastolic 70–125; PULSE 30–82; RESP 12–28; TEMP 36.1; O2SAT 95–100; BMI 36.5
--- NOTE | 2020-11-28 17:22 | DI.RAD.S_ITS ---
PROCEDURE: XR CHEST 1V INDICATIONS: chest pain TECHNIQUE: One view of the chest was acquired. COMPARISON: [facility], CT, CT ABDOMEN PELVIS WO CON, 06/25/2020, 9:55. FINDINGS: Surgical changes and devices: Post median sternotomy and CABG. Lungs and pleura: Lungs are clear. No pleural effusions or pneumothorax. Mediastinum: Mediastinal contours appear normal. Heart size is enlarged. Bones and chest wall: No suspicious bony lesions. Overlying soft tissues appear unremarkable. IMPRESSION: No acute cardiopulmonary abnormality. Cardiomegaly. Dictated by: Angelito Blankenship M.D. on 11/28/2020 at 17:03 Approved by: Angelito Blankenship M.D. on 11/28/2020 at 17:05
[2020-11-28] MEDS: SODIUM CHLORIDE 0.9% 1,000 ML 125 ML IV (17:50)
[2020-11-28 17:53] LABS: Add Manual Diff / Slide Review NO; Basophils Absolute Auto 100 /uL (0-100); Basophils Percent Auto 0.5 % (0-2); Eosinophils Absolute Auto 100 /uL (0-450); Eosinophils Percent Auto 0.8 % (2-4); Lymphocytes Absolute Auto 1800 /uL (1100-4500); Lymphocytes Percent Auto 12.8 % (25-40); Mean Corpuscular HGB Conc 33.3 % (30-36); Mean Corpuscular Hemoglobin 27.8 PG (26-34); Mean Corpuscular Volume 83.3 fL (80-100); Monocytes Absolute Auto 1100 /uL (0-900); Monocytes Percent Auto 8.2 % (3-14); Neutrophils Absolute Auto 10800 /uL (1500-7000); Neutrophils Percent Auto 77.7 % (50-75); Platelet Count 222 X10^3/uL (150-400); Red Blood Cell Count 6.48 X10^6/uL (4.5-5.9); Red Cell Distribution Width 14.2 % (11.6-14.8); White Blood Cell Count 13.9 X10^3/uL (4.5-11.0)
[2020-11-28 18:00] LABS: INR 1.4 (0.9-1.3); Prothrombin Time 15.9 SECONDS (10.1-12.7)
[2020-11-28 18:02] LABS: PTT Partial Thromboplastin Tim 35 SECONDS (26.4-36.2)
[2020-11-28 18:04] LABS: Alanine Aminotransferase 23 IU/L (<50); Albumin 4.5 g/dL (3.5-5.0); Albumin Globulin Ratio 1.4 (1.0-2.8); Alkaline Phosphatase 81 U/L (38-126); Aspartate Aminotransferase 34 IU/L (17-59); BUN Creatinine Ratio 21.7 (6-22); Bilirubin Total 0.9 mg/dL (0.2-1.3); Blood Urea Nitrogen 26 mg/dL (9-20); Calcium 9.9 mg/dL (8.4-10.2); Carbon Dioxide 27 mmol/L (22-32); Chloride 107 mmol/L (98-107); Creatine Kinase 90 U/L (55-170); Estimated Glomerular Filt Rate 59.7 mL/min (>60); Globulin 3.3 g/dL (1.7-4.1); Glucose 116 mg/dL (80-110); HEMOLYSIS 38 (0-50); Lipase 70 U/L (23-300); Sodium 141 mmol/L (137-145); Total Protein 7.8 g/dL (6.3-8.2)
[2020-11-28 18:07] LABS: COVID19 -Nasal RAPID Negative (Negative)
[2020-11-28 18:13] LABS: NT-proBNP (BNP-Adult 18+) 1040 pg/mL (<125)
[2020-11-28 18:15] LABS: Troponin I < 0.012 ng/mL (0.01-0.034)
[2020-11-28 18:47] LABS: Appearance Urine UA CLEAR; Bilirubin Urine UA NEGATIVE (NEGATIVE); Color Urine UA YELLOW; Glucose Urine UA NEGATIVE (Negative); Ketones Urine UA NEGATIVE (NEGATIVE); Leukocyte Esterase Urine UA TRACE (NEGATIVE); Nitrite Urine UA NEGATIVE (Negative); Occult Blood Urine UA 3+ (Negative); Protein Urine UA 1+ (Negative); Specific Gravity Urine UA >=1.030 (1.000-1.035); Urobilinogen Urine UA 0.2 E.U./dL (0.2)
[2020-11-28 19:15] LABS: Amorphous Sediment Urine 1+; Bacteria Urine Occasional (0-1); Culture Indicated Urine Cult Not Indicated; RBC Urine >100/HPF (0-5/HPF); Squamous Epithelial Cell Urine 0-1 /HPF (0-5/HPF); WBC Urine 0-1/HPF (0-5/HPF)
--- NOTE | 2020-11-28 19:40 | ED.GENADULT ---
HPI - General Adult General Chief complaint: Urogenital-Male Stated complaint: PAIN LOWER BACK PAIN PASSING BLOOD Time Seen by Provider: 11/28/20 17:58 Source: patient Mode of arrival: Ambulatory Limitations: no limitations Related Data Home Medications Medication Instructions Recorded Confirmed allopurinol 100 mg PO DAILY 06/25/20 09/07/20 amlodipine 2.5 mg PO DAILY 06/25/20 09/07/20 aspirin [Adult Low Dose Aspirin] 81 mg PO DAILY 06/25/20 09/07/20 colchicine [Colcrys] 0.6 mg PO DAILY 06/25/20 09/07/20 Previous Rx's Medication Instructions Recorded oxycodone 5 mg PO Q6H PRN #10 tab 06/25/20 rivaroxaban [Xarelto] 20 mg PO DAILY #10 tab 06/25/20 tamsulosin [Flomax] 0.4 mg PO DAILY #7 cap 06/25/20 tramadol 50 mg PO Q6H PRN #12 tab 06/25/20 potassium citrate 10 mEq (1,080 10 meq PO TID #90 tab 09/14/20 mg) tablet,extended release Allergies Allergy/AdvReac Type Severity Reaction Status Date / Time Lfrrapj-Ahd-Tqe Reductase AdvReac Intermediate Muscle Pain Verified 09/07/20 08:50 Inhibitor Patient History Medical History (Updated 09/07/20 @ 09:18 by Ti Powell MD) ASCVD (arteriosclerotic cardiovascular disease) 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 CAD (coronary artery disease) Colon cancer History of nephrolithiasis History of nephrolithiasis Hypertension Kidney stone Recurrent nephrolithiasis Surgical History H/O hernia repair History of knee replacement Hx of CABG Social History Smoking Status: Never smoker Smoking Status: Never smoker alcohol intake frequency: holidays/special occasions only Substance Use Type: does not use Exam Initial Vital Signs Initial Vital Signs: Vital Signs Temperature 96.9 F L 11/28/20 17:16 Pulse Rate 30 L 11/28/20 17:16 Respiratory Rate 20 11/28/20 17:16 Blood Pressure 209/88 H 11/28/20 17:16 Pulse Oximetry 100 11/28/20 17:16 Course Orders Ordered: ED Orders 11/28/20 17:18 EKG-12 Lead Stat 11/28/20 17:22 XR chest 1V Stat 11/28/20 17:36 BNP [NT-proBNP (BNP-Adult 18+)] Stat COVID19 Stat Complete Blood Count AUTO DIFF Stat Comprehensive Metabolic Panel Stat Lipase Stat Partial Thromboplastin Time Stat Prothrombin Time INR Stat Troponin & CK Cardiac Panel Stat Urinalysis and Microscopic Stat Sodium Chloride (Normal Saline 0.9%) 1,000 mls @ 125 mls/hr IV CONT GUTIERREZ Last Admin: 11/28/20 17:50 Dose: 125 mls/hr Documented by: MARIELLA Vital Signs Vital signs: Vital Signs - 8 hr 11/28/20 17:16 11/28/20 17:35 11/28/20 17:46 Temperature 96.9 F L Pulse Rate 30 L 70 55 L Respiratory Rate 20 12 26 H Blood Pressure 209/88 H 194/91 H Pulse Oximetry 100 99 97 11/28/20 18:00 11/28/20 18:16 11/28/20 18:30 Temperature Pulse Rate 70 60 59 L Respiratory Rate 21 19 16 Blood Pressure 190/125 H 196/91 H Pulse Oximetry 97 98 98 11/28/20 18:31 11/28/20 18:46 Temperature Pulse Rate 63 66 Respiratory Rate 16 22 Blood Pressure 192/83 H 178/86 H Pulse Oximetry 98 98 Medical Decision Making Lab Data Result diagrams: 11/28/20 17:36 11/28/20 17:36 Labs: Lab Results 11/28/20 11/28/20 11/28/20 Range/Units 17:36 17:36 17:36 WBC 13.9 H (4.5-11.0) X10^3/uL RBC 6.48 H (4.5-5.9) X10^6/uL Hgb 18.0 H (13.5-17.5) g/dL Hct 54.0 H (41-53) % MCV 83.3 (80-100) fL MCH 27.8 (26-34) PG MCHC 33.3 (30-36) % RDW 14.2 (11.6-14.8) % Plt Count 222 (150-400) X10^3/uL Neut % (Auto) 77.7 H (50-75) % Lymph % (Auto) 12.8 L (25-40) % [place] % (Auto) 8.2 (3-14) % Eos % (Auto) 0.8 L (2-4) % Baso % (Auto) 0.5 (0-2) % Neut # (Auto) 47205 H (1473-5116) /uL Lymph # (Auto) 1800 (8846-3952) /uL [place] # (Auto) 1100 H (0-900) /uL Eos # (Auto) 100 (0-450) /uL Baso # (Auto) 100 (0-100) /uL PT 15.9 H (10.1-12.7) SECONDS INR 1.4 H (0.9-1.3) APTT 35 D (26.4-36.2) SECONDS Sodium 141 (137-145) mmol/L Potassium 4.0 (3.4-5.1) mmol/L Chloride 107 (98-107) mmol/L Carbon Dioxide 27 (22-32) mmol/L BUN 26 H (9-20) mg/dL Creatinine 1.20 (0.66-1.25) mg/dL Estimated GFR 59.7 L (>60) mL/min BUN/Creatinine Ratio 21.7 (6-22) Glucose 116 H (80-110) mg/dL Calcium 9.9 (8.4-10.2) mg/dL Total Bilirubin 0.9 (0.2-1.3) mg/dL AST 34 (17-59) IU/L ALT 23 (<50) IU/L Alkaline Phosphatase 81 (38-126) U/L Total Creatine Kinase 90 (55-170) U/L CK-MB (CK-2) TNP CK-MB (CK-2) Rel Index TNP Troponin I < 0.012 (0.01-0.034) ng/mL NT-Pro-B Natriuret Pep (<125) pg/mL Total Protein 7.8 (6.3-8.2) g/dL Albumin 4.5 (3.5-5.0) g/dL Globulin 3.3 (1.7-4.1) g/dL Albumin/Globulin Ratio 1.4 (1.0-2.8) Lipase 70 (23-300) U/L Urine Color Urine Appearance Urine pH (4.5-8.0) Ur Specific [place] (1.000-1.035) Urine Protein (Negative) Urine Glucose (UA) (Negative) g/dL Urine Ketones (NEGATIVE) Urine Occult Blood (Negative) Urine Nitrate (Negative) Urine Bilirubin (NEGATIVE) Urine Urobilinogen (0.2) E.U./dL Ur Leukocyte Esterase (NEGATIVE) Urine RBC (0-5/HPF) Urine WBC (0-5/HPF) Ur Squamous Epith Cells (0-5/HPF) Amorphous Sediment Urine Bacteria (None) Ur Culture Indicated? SARS-CoV-2 (PCR) (Negative) 11/28/20 11/28/20 11/28/20 Range/Units 17:36 17:36 17:36 WBC (4.5-11.0) X10^3/uL RBC (4.5-5.9) X10^6/uL Hgb (13.5-17.5) g/dL Hct (41-53) % MCV (80-100) fL MCH (26-34) PG MCHC (30-36) % RDW (11.6-14.8) % Plt Count (150-400) X10^3/uL Neut % (Auto) (50-75) % Lymph % (Auto) (25-40) % [place] % (Auto) (3-14) % Eos % (Auto) (2-4) % Baso % (Auto) (0-2) % Neut # (Auto) (7048-0093) /uL Lymph # (Auto) (1540-8498) /uL [place] # (Auto) (0-900) /uL Eos # (Auto) (0-450) /uL Baso # (Auto) (0-100) /uL PT (10.1-12.7) SECONDS INR (0.9-1.3) APTT (26.4-36.2) SECONDS Sodium (137-145) mmol/L Potassium (3.4-5.1) mmol/L Chloride (98-107) mmol/L Carbon Dioxide (22-32) mmol/L BUN (9-20) mg/dL Creatinine (0.66-1.25) mg/dL Estimated GFR (>60) mL/min BUN/Creatinine Ratio (6-22) Glucose (80-110) mg/dL Calcium (8.4-10.2) mg/dL Total Bilirubin (0.2-1.3) mg/dL AST (17-59) IU/L ALT (<50) IU/L Alkaline Phosphatase (38-126) U/L Total Creatine Kinase (55-170) U/L CK-MB (CK-2) CK-MB (CK-2) Rel Index Troponin I (0.01-0.034) ng/mL NT-Pro-B Natriuret Pep 1040 H (<125) pg/mL Total Protein (6.3-8.2) g/dL Albumin (3.5-5.0) g/dL Globulin (1.7-4.1) g/dL Albumin/Globulin Ratio (1.0-2.8) Lipase (23-300) U/L Urine Color Yellow Urine Appearance Clear Urine pH 5.0 (4.5-8.0) Ur Specific [place] >=1.030 H (1.000-1.035) Urine Protein 1+ H (Negative) Urine Glucose (UA) Negative (Negative) g/dL Urine Ketones Negative (NEGATIVE) Urine Occult Blood 3+ H (Negative) Urine Nitrate Negative (Negative) Urine Bilirubin Negative (NEGATIVE) Urine Urobilinogen 0.2 (0.2) E.U./dL Ur Leukocyte Esterase Trace H (NEGATIVE) Urine RBC >100/hpf H (0-5/HPF) Urine WBC 0-1/hpf (0-5/HPF) Ur Squamous Epith Cells 0-1 /hpf (0-5/HPF) Amorphous Sediment 1+ Urine Bacteria Occasional (0-1) (None) Ur Culture Indicated? Cult not indicated SARS-CoV-2 (PCR) Negative (Negative) Discharge Plan Departure Prescriptions: No Action potassium citrate 10 mEq (1,080 mg) tablet extended release 10 meq PO TID Qty: 90 RF: 12 amlodipine 2.5 mg tablet 2.5 mg PO DAILY RF: 0 allopurinol 100 mg tablet 100 mg PO DAILY RF: 0 colchicine [Colcrys] 0.6 mg tablet 0.6 mg PO DAILY RF: 0 aspirin [Adult Low Dose Aspirin] 81 mg Tablet,Delayed Release (Dr/Ec) 81 mg PO DAILY RF: 0 tamsulosin [Flomax] 0.4 mg capsule 0.4 mg PO DAILY Qty: 7 RF: 0 tramadol 50 mg tablet 50 mg PO Q6H PRN (Reason: pain) Qty: 12 RF: 0 oxycodone 5 mg tablet 5 mg PO Q6H PRN (Reason: pain) Qty: 10 RF: 0 Xarelto 10 mg tablet 20 mg PO DAILY Qty: 10 RF: 1
--- NOTE | 2020-11-28 19:40 | ED.GENADULT ---
HPI - General Adult General Chief complaint: Urogenital-Male Stated complaint: PAIN LOWER BACK PAIN PASSING BLOOD Time Seen by Provider: 11/28/20 17:58 Source: patient Mode of arrival: Ambulatory Limitations: no limitations History of Present Illness HPI narrative: Patient is a 70-year-old male. Has a history of atrial fibrillation and is on anticoagulation. Has had multiple kidney stones in the past as well. Here for evaluation of approximately 1 week of right sided flank pain, blood in his urine and right lower quadrant abdominal pain. No fevers. No chest pain. No shortness of breath. He states this feels somewhat different than his prior history of kidney stones. Denies any dysuria. No change in bowel habits. No nausea or vomiting. He has an appointment with urology tomorrow. Related Data Home Medications Medication Instructions Recorded Confirmed allopurinol 100 mg PO DAILY 06/25/20 09/07/20 amlodipine 2.5 mg PO DAILY 06/25/20 09/07/20 aspirin [Adult Low Dose Aspirin] 81 mg PO DAILY 06/25/20 09/07/20 colchicine [Colcrys] 0.6 mg PO DAILY 06/25/20 09/07/20 Previous Rx's Medication Instructions Recorded oxycodone 5 mg PO Q6H PRN #10 tab 06/25/20 rivaroxaban [Xarelto] 20 mg PO DAILY #10 tab 06/25/20 tamsulosin [Flomax] 0.4 mg PO DAILY #7 cap 06/25/20 tramadol 50 mg PO Q6H PRN #12 tab 06/25/20 potassium citrate 10 mEq (1,080 10 meq PO TID #90 tab 09/14/20 mg) tablet,extended release sulfamethoxazole-trimethoprim 1 tab PO Q12H 14 Days #28 tab 11/28/20 [Bactrim DS] Allergies Allergy/AdvReac Type Severity Reaction Status Date / Time Csgybxs-Iua-Ocs Reductase AdvReac Intermediate Muscle Pain Verified 09/07/20 08:50 Inhibitor Review of Systems Constitutional Constitutional: Denies fever(s) and Denies headache(s) ENT Ears, Nose, Mouth, and Throat: Denies vertigo and Denies headache(s) Cardiovascular Cardiovascular: Denies chest pain and Denies dyspnea Respiratory Respiratory: Denies dyspnea Gastrointestinal Gastrointestinal: Reports abdominal pain, Denies change in bowel habits, Denies nausea and Denies vomiting Genitourinary Genitourinary: Reports hematuria, Denies dysuria and Denies urinary incontinence Genitourinary: Reports hematuria, Denies dysuria and Denies urinary incontinence Musculoskeletal Musculoskeletal: Denies arthralgias, Reports back pain (Right-sided flank) and Denies myalgias Integumentary/Breasts Skin/Breast: Denies lesions and Denies rash Neurologic Neurologic: Denies confusion, Denies vertigo and Denies headache(s) Psychiatric Psychiatric: Denies confusion Hematologic/Lymphatic Comments: Is on anticoagulation Allergic/Immunologic Allergic/Immunologic: Denies urticaria Patient History Medical History ASCVD (arteriosclerotic cardiovascular disease) 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 CAD (coronary artery disease) Colon cancer History of nephrolithiasis History of nephrolithiasis Hypertension Kidney stone Recurrent nephrolithiasis Surgical History H/O hernia repair History of knee replacement Hx of CABG Social History Smoking Status: Never smoker Smoking Status: Never smoker alcohol intake frequency: holidays/special occasions only Substance Use Type: does not use Exam Initial Vital Signs Initial Vital Signs: Vital Signs Temperature 96.9 F L 11/28/20 17:16 Pulse Rate 30 L 11/28/20 17:16 Respiratory Rate 20 11/28/20 17:16 Blood Pressure 209/88 H 11/28/20 17:16 Pulse Oximetry 100 11/28/20 17:16 Const General: cooperative, comfortable and well developed Limitations: mental status not altered [facility] Head: normal to inspection and normocephalic Face and sinus: normal facial exam Eyes Eyelids: eyelids normal Resp Effort & Inspection: normal respiratory effort Cardio Rate: bradycardic Rhythm: abnormal rhythm GI Inspection: non-distended Palpation: soft, No firm and tender (Right-sided abdomen) Skin Lesions: no lesions Rashes: no rashes Neuro General: patient alert, patient awake and patient oriented x3 Speech: speech normal Extrem General: capillary refill normal Psych Appearance: grossly normal and well kempt Scores GCS Billy coma scale eye opening: Spontaneous [place] coma scale verbal response: Orientated Billy coma scale motor response: Obey commands Billy coma scale total score: 15 Course Orders Ordered: ED Orders 11/28/20 19:41 CT abdomen pelvis w con Stat 11/28/20 20:54 UA Complete [Urinalysis and Microscopic] Stat 11/29/20 04:04 Urine Culture Stat Discontinued Medications Sodium Chloride (Normal Saline 0.9%) 1,000 mls @ 125 mls/hr IV CONT GUTIERREZ Last Infusion: 11/28/20 21:50 Dose: 0 mls/hr Documented by: Admin: 11/28/20 17:50 Dose: 125 mls/hr Documented by: MARIELLA Ondansetron HCl (Ondansetron 4 Mg Odt Prepack) 1 bottle MISC SEEINSTR ONE Stop: 11/28/20 21:38 Last Admin: 11/28/20 21:49 Dose: 1 bottle Documented by: CYNTHIA Trimethoprim/Sulfamethoxazole (Trimeth/Sulfa 160/800 (Ds) Tablet) 1 tab PO NOW ONE Stop: 11/28/20 21:38 Last Admin: 11/28/20 21:49 Dose: 1 tab Documented by: CYNTHIA Vital Signs Vital signs: Vital Signs - 8 hr 11/28/20 20:30 11/28/20 20:50 11/28/20 21:00 Pulse Rate 57 L 59 L 57 L Respiratory Rate 21 22 20 Blood Pressure 149/72 H 153/70 H Pulse Oximetry 97 96 96 11/28/20 21:15 11/28/20 21:30 11/28/20 23:01 Pulse Rate 54 L 63 82 Respiratory Rate 19 28 H 14 Blood Pressure 150/70 H 176/81 H Pulse Oximetry 96 96 96 Medical Decision Making Medical Records Medical records reviewed: Yes I reviewed the patient's medical records. Lab Data Lab results reviewed: Yes I reviewed the patient's lab results. Result diagrams: 11/28/20 17:36 11/28/20 17:36 Labs: Lab Results 11/28/20 11/28/20 11/28/20 Range/Units 17:36 17:36 17:36 WBC 13.9 H (4.5-11.0) X10^3/uL RBC 6.48 H (4.5-5.9) X10^6/uL Hgb 18.0 H (13.5-17.5) g/dL Hct 54.0 H (41-53) % MCV 83.3 (80-100) fL MCH 27.8 (26-34) PG MCHC 33.3 (30-36) % RDW 14.2 (11.6-14.8) % Plt Count 222 (150-400) X10^3/uL Neut % (Auto) 77.7 H (50-75) % Lymph % (Auto) 12.8 L (25-40) % [place] % (Auto) 8.2 (3-14) % Eos % (Auto) 0.8 L (2-4) % Baso % (Auto) 0.5 (0-2) % Neut # (Auto) 92795 H (4915-6628) /uL Lymph # (Auto) 1800 (1068-8526) /uL [place] # (Auto) 1100 H (0-900) /uL Eos # (Auto) 100 (0-450) /uL Baso # (Auto) 100 (0-100) /uL PT 15.9 H (10.1-12.7) SECONDS INR 1.4 H (0.9-1.3) APTT 35 D (26.4-36.2) SECONDS Sodium 141 (137-145) mmol/L Potassium 4.0 (3.4-5.1) mmol/L Chloride 107 (98-107) mmol/L Carbon Dioxide 27 (22-32) mmol/L BUN 26 H (9-20) mg/dL Creatinine 1.20 (0.66-1.25) mg/dL Estimated GFR 59.7 L (>60) mL/min BUN/Creatinine Ratio 21.7 (6-22) Glucose 116 H (80-110) mg/dL Calcium 9.9 (8.4-10.2) mg/dL Total Bilirubin 0.9 (0.2-1.3) mg/dL AST 34 (17-59) IU/L ALT 23 (<50) IU/L Alkaline Phosphatase 81 (38-126) U/L Total Creatine Kinase 90 (55-170) U/L CK-MB (CK-2) TNP CK-MB (CK-2) Rel Index TNP Troponin I < 0.012 (0.01-0.034) ng/mL NT-Pro-B Natriuret Pep (<125) pg/mL Total Protein 7.8 (6.3-8.2) g/dL Albumin 4.5 (3.5-5.0) g/dL Globulin 3.3 (1.7-4.1) g/dL Albumin/Globulin Ratio 1.4 (1.0-2.8) Lipase 70 (23-300) U/L Urine Color Urine Appearance Urine pH (4.5-8.0) Ur Specific [place] (1.000-1.035) Urine Protein (Negative) Urine Glucose (UA) (Negative) g/dL Urine Ketones (NEGATIVE) Urine Occult Blood (Negative) Urine Nitrate (Negative) Urine Bilirubin (NEGATIVE) Urine Urobilinogen (0.2) E.U./dL Ur Leukocyte Esterase (NEGATIVE) Urine RBC (0-5/HPF) Urine WBC (0-5/HPF) Ur Squamous Epith Cells (0-5/HPF) Amorphous Sediment Urine Bacteria (None) Ur Culture Indicated? SARS-CoV-2 (PCR) (Negative) 11/28/20 11/28/20 11/28/20 Range/Units 17:36 17:36 17:36 WBC (4.5-11.0) X10^3/uL RBC (4.5-5.9) X10^6/uL Hgb (13.5-17.5) g/dL Hct (41-53) % MCV (80-100) fL MCH (26-34) PG MCHC (30-36) % RDW (11.6-14.8) % Plt Count (150-400) X10^3/uL Neut % (Auto) (50-75) % Lymph % (Auto) (25-40) % [place] % (Auto) (3-14) % Eos % (Auto) (2-4) % Baso % (Auto) (0-2) % Neut # (Auto) (4698-5618) /uL Lymph # (Auto) (7358-7621) /uL [place] # (Auto) (0-900) /uL Eos # (Auto) (0-450) /uL Baso # (Auto) (0-100) /uL PT (10.1-12.7) SECONDS INR (0.9-1.3) APTT (26.4-36.2) SECONDS Sodium (137-145) mmol/L Potassium (3.4-5.1) mmol/L Chloride (98-107) mmol/L Carbon Dioxide (22-32) mmol/L BUN (9-20) mg/dL Creatinine (0.66-1.25) mg/dL Estimated GFR (>60) mL/min BUN/Creatinine Ratio (6-22) Glucose (80-110) mg/dL Calcium (8.4-10.2) mg/dL Total Bilirubin (0.2-1.3) mg/dL AST (17-59) IU/L ALT (<50) IU/L Alkaline Phosphatase (38-126) U/L Total Creatine Kinase (55-170) U/L CK-MB (CK-2) CK-MB (CK-2) Rel Index Troponin I (0.01-0.034) ng/mL NT-Pro-B Natriuret Pep 1040 H (<125) pg/mL Total Protein (6.3-8.2) g/dL Albumin (3.5-5.0) g/dL Globulin (1.7-4.1) g/dL Albumin/Globulin Ratio (1.0-2.8) Lipase (23-300) U/L Urine Color Yellow Urine Appearance Clear Urine pH 5.0 (4.5-8.0) Ur Specific [place] >=1.030 H (1.000-1.035) Urine Protein 1+ H (Negative) Urine Glucose (UA) Negative (Negative) g/dL Urine Ketones Negative (NEGATIVE) Urine Occult Blood 3+ H (Negative) Urine Nitrate Negative (Negative) Urine Bilirubin Negative (NEGATIVE) Urine Urobilinogen 0.2 (0.2) E.U./dL Ur Leukocyte Esterase Trace H (NEGATIVE) Urine RBC >100/hpf H (0-5/HPF) Urine WBC 0-1/hpf (0-5/HPF) Ur Squamous Epith Cells 0-1 /hpf (0-5/HPF) Amorphous Sediment 1+ Urine Bacteria Occasional (0-1) (None) Ur Culture Indicated? Cult not indicated SARS-CoV-2 (PCR) Negative (Negative) 11/28/20 Range/Units 20:54 WBC (4.5-11.0) X10^3/uL RBC (4.5-5.9) X10^6/uL Hgb (13.5-17.5) g/dL Hct (41-53) % MCV (80-100) fL MCH (26-34) PG MCHC (30-36) % RDW (11.6-14.8) % Plt Count (150-400) X10^3/uL Neut % (Auto) (50-75) % Lymph % (Auto) (25-40) % [place] % (Auto) (3-14) % Eos % (Auto) (2-4) % Baso % (Auto) (0-2) % Neut # (Auto) (5044-1001) /uL Lymph # (Auto) (1113-7712) /uL [place] # (Auto) (0-900) /uL Eos # (Auto) (0-450) /uL Baso # (Auto) (0-100) /uL PT (10.1-12.7) SECONDS INR (0.9-1.3) APTT (26.4-36.2) SECONDS Sodium (137-145) mmol/L Potassium (3.4-5.1) mmol/L Chloride (98-107) mmol/L Carbon Dioxide (22-32) mmol/L BUN (9-20) mg/dL Creatinine (0.66-1.25) mg/dL Estimated GFR (>60) mL/min BUN/Creatinine Ratio (6-22) Glucose (80-110) mg/dL Calcium (8.4-10.2) mg/dL Total Bilirubin (0.2-1.3) mg/dL AST (17-59) IU/L ALT (<50) IU/L Alkaline Phosphatase (38-126) U/L Total Creatine Kinase (55-170) U/L CK-MB (CK-2) CK-MB (CK-2) Rel Index Troponin I (0.01-0.034) ng/mL NT-Pro-B Natriuret Pep (<125) pg/mL Total Protein (6.3-8.2) g/dL Albumin (3.5-5.0) g/dL Globulin (1.7-4.1) g/dL Albumin/Globulin Ratio (1.0-2.8) Lipase (23-300) U/L Urine Color Red Urine Appearance Turbid Urine pH 5.0 (4.5-8.0) Ur Specific [place] 1.020 (1.000-1.035) Urine Protein 2+ H (Negative) Urine Glucose (UA) Negative (Negative) g/dL Urine Ketones 1+ H (NEGATIVE) Urine Occult Blood 3+ H (Negative) Urine Nitrate Positive (Negative) Urine Bilirubin Negative (NEGATIVE) Urine Urobilinogen 0.2 (0.2) E.U./dL Ur Leukocyte Esterase Negative (NEGATIVE) Urine RBC >100/hpf H (0-5/HPF) Urine WBC None seen (0-5/HPF) Ur Squamous Epith Cells (0-5/HPF) Amorphous Sediment Urine Bacteria None seen (None) Ur Culture Indicated? Cult not indicated SARS-CoV-2 (PCR) (Negative) Urine Dip Bedside Urine Glucose Negative Bedside Urine Bilirubin - Negative Bedside Urine Ketone + 15 Urine Specific [place] 1.020 Bedside Urine Occult Blood +++ Bedside Urine pH 5.0 Bedside Urine Protein ++ 100 Bedside Urine Urobilinogen +/- 1mg Bedside Urine Nitrite + Positive Bedside Urine Leukocytes + 70 Esterase Point of care testing: Urine Dip Bedside Urine Glucose Negative Bedside Urine Bilirubin - Negative Bedside Urine Ketone + 15 Urine Specific [place] 1.020 Bedside Urine Occult Blood +++ Bedside Urine pH 5.0 Bedside Urine Protein ++ 100 Bedside Urine Urobilinogen +/- 1mg Bedside Urine Nitrite + Positive Bedside Urine Leukocytes + 70 Esterase Imaging Data Chest x-ray: Radiologist's Impression: [address] [id number] ReportSigned Patient: Victor M Goldman LMR#: [id number]: 1950cct:[id number]/Sex: 70 / MDate of Service: 11/28/20Loc: EDAccession Number: [id number] Procedure: XR chest 1V Ordering Provider: Ginny Montez D.O. PROCEDURE: XR CHEST 1V INDICATIONS: chest pain TECHNIQUE: One view of the chest was acquired. COMPARISON: [facility], CT, CT ABDOMEN PELVIS WO CON, 06/25/2020, 9:55. FINDINGS: Surgical changes and devices: Post median sternotomy and CABG. Lungs and pleura: Lungs are clear. No pleural effusions or pneumothorax. Mediastinum: Mediastinal contours appear normal. Heart size is enlarged. Bones and chest wall: No suspicious bony lesions. Overlying soft tissues appear unremarkable. IMPRESSION: No acute cardiopulmonary abnormality. Cardiomegaly. Dictated by: Angelito Blankenship M.D. on 11/28/2020 at 17:03 Approved by: Angelito Blankenship M.D. on 11/28/2020 at 17:05 CT scan - abdomen/pelvis: Radiologist's Impression: [address] [id number] Scan ReportSigned Patient: Victor M Goldman LMR#: [id number]: 9Acct:[id number]/Sex: 70 / MDate of Service: 11/28/20Loc: EDAccession Number: [id number] Procedure: CT abdomen pelvis w con Ordering Provider: Nishant He D.O. PROCEDURE: CT ABDOMEN PELVIS W CON INDICATIONS: Right- sided abdominal pain TECHNIQUE: After the administration of intravenous contrast, 5 mm thick sections acquired from the diaphragm to the symphysis. 5 mm coronal and sagittal reformats were acquired. For radiation dose reduction, the following was used: automated exposure control, adjustment of mA and/or kV according to patient size. COMPARISON: [facility], CT, CT ABDOMEN PELVIS WO CON, 06/25/2020, 9:55. FINDINGS: Image quality: Excellent. ABDOMEN: Lung bases: There is mild atelectasis and scarring in the lung bases. Heart size is normal. Solid organs: There is diffuse hypoattenuation of the liver consistent with fatty infiltration. The gallbladder appears within normal limits without calcified gallstones. Biliary system is non-dilated. Pancreas enhances normally. No peripancreatic fat stranding or fluid collections. No pancreatic duct dilatation. The spleen is normal in size. There are scattered calcifications within the spleen consistent with sequelae of old granulomas disease. No adrenal nodules. There is asymmetric enlargement of the right kidney with extensive perinephric stranding and edema. There is mild delayed enhancement of the right kidney. There is mild fullness of the right renal collecting system and right ureter with mild urothelial thickening and enhancement. No discrete urinary stone or obstructing ureteral mass visualized. No left hydronephrosis or urothelial thickening. Peritoneum and bowel: Bowel loops demonstrate normal wall thickness and caliber. No evidence of appendicitis. There is colonic diverticulosis without acute diverticulitis. No free fluid or air. Nodes and vessels: No retroperitoneal or mesenteric adenopathy by size criteria. Aorta and inferior vena cava are normal in size. Miscellaneous: No ventral hernias. PELVIS: Genitourinary: Bladder wall thickness is normal. There is heterogeneous enlargement of the prostate. No calcified bladder stones. Miscellaneous: There is a small fat-containing right inguinal hernia. No inguinal adenopathy. Bones: No suspicious bony lesions. No vertebral body compression fractures. IMPRESSION: 1. Asymmetric right perinephric stranding and decreased enhancement. Mild fullness of the right renal collecting system and right ureter are demonstrated with associated mild urothelial thickening and enhancement. The constellation of findings are suggestive of a urinary tract infection and possible pyelonephritis. No obstructing stone or discrete mass identified. No perinephric or intrarenal abscess. 2. Heterogeneous enlargement of the prostate. Given its proximity to the right UVJ, possible mass effect on the UVJ may be present potentially contributing to fullness of the right renal collecting system. No high-grade hydronephrosis. 3. Colonic diverticulosis. Dictated by: Pranav Bennett M.D. on 11/28/2020 at 21:03 Approved by: Pranav Bennett M.D. on 11/28/2020 at 21:10 ECG Data Attestation: I personally reviewed and interpreted this ECG as follows: Prior ECG tracings: not available for review Interpretation: AFib Ventricular rate [address] T wave changes MDM Narrative Medical decision making narrative: Patient did have a relatively benign exam however given his right-sided discomfort and the blood in his urine and the fact that he states that this feels somewhat different from prior kidney stones I felt that a CT scan was likely. There was no stone seen on the CT however there was right perinephric stranding and other findings that could be concerning for urinary tract infection. I also wonder if this could secondarily be from a recently passed kidney stone. He has a leukocytosis. His initial urinalysis was not all that concerning for an infection however a 2nd sample that was given here in the ER after he was having more symptoms was nitrite positive. His kidney function was unremarkable. He is not having chest pain or shortness of breath. CT scan negative for other surgical pathology. Plan will be is to treat him has pyelonephritis. He was given a dose of antibiotics here in the emergency department and tolerated it without problems. Will send home with a prescription for the remainder of the course. He has a follow-up with Urology coming up and he was instructed to discuss his visit here in the emergency department with the urologist. He is given strict return precautions and follow-up instructions. He expressed understanding and agreement. A urine culture was pending at the time of discharge Discharge Plan Departure Patient Disposition: Home Clinical Impression: Acute pyelonephritis Instructions: DI for Kidney Infection Activity Restrictions/Additional Instructions: Take the antibiotics as directed. Contact your primary provider for follow-up. Return to the emergency department for any new symptoms, worsening pain, fevers, inability to take the antibiotics her any other new or worsening symptoms Prescriptions: New sulfamethoxazole-trimethoprim [Bactrim DS] 800-160 mg tablet 1 tab PO Q12H 14 Days Qty: 28 RF: 0 No Action potassium citrate 10 mEq (1,080 mg) tablet extended release 10 meq PO TID Qty: 90 RF: 12 amlodipine 2.5 mg tablet 2.5 mg PO DAILY RF: 0 allopurinol 100 mg tablet 100 mg PO DAILY RF: 0 colchicine [Colcrys] 0.6 mg tablet 0.6 mg PO DAILY RF: 0 aspirin [Adult Low Dose Aspirin] 81 mg Tablet,Delayed Release (Dr/Ec) 81 mg PO DAILY RF: 0 tamsulosin [Flomax] 0.4 mg capsule 0.4 mg PO DAILY Qty: 7 RF: 0 tramadol 50 mg tablet 50 mg PO Q6H PRN (Reason: pain) Qty: 12 RF: 0 oxycodone 5 mg tablet 5 mg PO Q6H PRN (Reason: pain) Qty: 10 RF: 0 Xarelto 10 mg tablet 20 mg PO DAILY Qty: 10 RF: 1 Referrals: Keny Soria MD [Primary Care Provider] -
[2020-11-28 21:06] LABS: Bacteria Urine None Seen; WBC Urine None Seen (0-5/HPF)
[2020-11-28 21:28] LABS: Appearance Urine UA TURBID; Bilirubin Urine UA NEGATIVE (NEGATIVE); Color Urine UA RED; Glucose Urine UA NEGATIVE (Negative); Ketones Urine UA 1+ (NEGATIVE); Leukocyte Esterase Urine UA NEGATIVE (NEGATIVE); Nitrite Urine UA POSITIVE (Negative); Occult Blood Urine UA 3+ (Negative); Protein Urine UA 2+ (Negative); Urobilinogen Urine UA 0.2 E.U./dL (0.2)
[2020-11-28 21:29] LABS: Culture Indicated Urine Cult Not Indicated; RBC Urine >100/HPF (0-5/HPF)
[2020-11-28] MEDS: ONDANSETRON 4 MG ODT PREPACK 1 BOTTLE MISC (21:49)
[2020-11-28] MEDS: TRIMETH/SULFA 160/800 (DS) TABLET 1 TAB PO (21:49)
== END 2020-11-28 23:04 | disposition home or self-care (01) ==
PROVIDERS: Emergency Medicine; Emergency Provider Emergency Medicine; PCP Family Medicine
DX: N10 Acute pyelonephritis (principal); R31.9 Hematuria, unspecified; Z87.442 Personal history of urinary calculi; Z20.822 Contact with and (suspected) exposure to COVID-19; I25.10 Atherosclerotic heart disease of native coronary artery without angina pectoris; R00.1 Bradycardia, unspecified; R07.9 Chest pain, unspecified
CPT/HCPCS: 36415; 51798; 71045; 74177; 80053; 81001; 81003; 82550; 83690; 83880; 84484; 85025; 85610; 85730; 87086; 87635; 93005; 96360; 96361; 99283; 99284; C9803

== ENCOUNTER → 2021-07-06 09:05 | Outpatient (CLI) | payer MEDICARE, OTHER, SELFPAY ==
[2021-07-06 10:51] LABS: Prostate Specific Antigen 3.53 ng/mL (0.10-4.00)
== END ==
PROVIDERS: PCP Family Medicine; Referring Provider Specialist; Visit Provider Specialist
DX: N13.8 Other obstructive and reflux uropathy (principal); N40.1 Benign prostatic hyperplasia with lower urinary tract symptoms; N20.0 Calculus of kidney; Z87.442 Personal history of urinary calculi
CPT/HCPCS: 36415; 84153

== ENCOUNTER → 2022-07-25 10:12 | Outpatient (CLI) | payer MEDICARE, OTHER, SELFPAY ==
--- NOTE | 2022-07-25 10:16 | DI.RAD.S_ITS ---
PROCEDURE: XR KUB INDICATIONS: recurrent nephrolithiasis TECHNIQUE: One view of the abdomen acquired. COMPARISON: [facility], CR, XR KUB, 09/01/2020, 10:05. [facility], CR, XR KUB, 07/14/2020, 8:57. FINDINGS: Surgical changes and devices: Clips in the right abdomen. Clip in the right pelvis. Bowel: Prominent stool in the colon. No dilated loops of bowel seen. Soft tissues: No suspicious abdominal calcifications. Visualized solid organ contours appear normal in size. Bones: No suspicious bony lesions. IMPRESSION: No kidney stones identified. Consider further evaluation with CT KUB. Prominent stool in the colon. Dictated by: Angelito Blankenship M.D. on 07/25/2022 at 11:18 Approved by: Angelito Blankenship M.D. on 07/25/2022 at 11:20
[2022-07-25 13:02] LABS: Prostate Specific Antigen 3.53 ng/mL (0.10-4.00)
== END ==
PROVIDERS: PCP Internal Medicine; Referring Provider Specialist; Visit Provider Specialist
DX: R97.20 Elevated prostate specific antigen [PSA] (principal); N20.0 Calculus of kidney
CPT/HCPCS: 36415; 74018; 84153

== ENCOUNTER → 2022-12-03 12:10 | Outpatient (CLI) | payer MEDICARE, OTHER, SELFPAY ==
--- NOTE | 2022-12-03 12:14 | DI.ECHO.S_ITS ---
[facility]---------[facility] +---------+ : : [address] : : : : [id number] : : : : Phone: [phone] Echocardiogram Report + + :Name: ROSA BROWN Study Date: 12/03/2022 Height: 71 in : :[facility] ReadingLocation: Weight: 260 lb : : Gender: Male BSA: 2.4 m2 : :: 1950 Age: 72 yrs BP: 158/84 mmHg: :Reason For Study: CHRONIC ISCHEMIC HEART DISEASE : :Ordering Physician: TASHA, : :PAUL Performed By: Cehyenne Nickerson : :Referring: HAMMAD MAGALLANES : + + Interpretation Summary The study quality was technically difficult. The patient was in atrial fibrillation with heart rates between 30-55 bpm during the exam. Normal left entricle size with ejection fraction 55-60%. The left atrium is severely dilated. The right atrium is mildly dilated. Mild mitral regurgitation. Mild tricuspid regurgitation. Procedure: A two-dimensional transthoracic echocardiogram with color flow and Doppler was performed. The study quality was technically difficult. There is no prior echocardiogram noted for this patient. The patient was in atrial fibrillation with heart rates between 30-55 bpm during the exam. Left Ventricle: The left ventricle is normal in size. Proximal septal thickening is noted. The ejection fraction is estimated to be 55-60%. There are no obvious focal wall motion abnormalities noted but poor endocardial definition reduces the sensitivity for the detection of such. Diastolic function could not be accurately assessed due to atrial fibrillation. Right Ventricle: The right ventricle is not well visualized. Atria: The left atrium is severely dilated. The right atrium is mildly dilated. There is no Doppler evidence for an interatrial shunt. Mitral Valve: The mitral valve leaflets appear mildly thickened, but open well. There is mild mitral regurgitation. Aortic Valve: The aortic valve is trileaflet. There is no aortic valve stenosis. No aortic regurgitation is present. Tricuspid Valve: The tricuspid valve is normal in structure and function. There is mild tricuspid regurgitation. The right ventricular systolic pressure is estimated to be at least 29 mmHg based on an estimated right atrial pressure of 3 mm Hg. Pulmonic Valve: The pulmonic valve leaflets are thin and pliable; valve motion is normal. There is mild pulmonic regurgitation. Great Vessels: The aortic root is normal size. The ascending aorta could not be visualized. The IVC is of normal diameter and collapses greater than 50% with a sniff. This suggests a low right atrial pressure of 3 mm Hg. Pericardium/ Pleura There is no pericardial effusion. There is no pleural effusion. MMode/2D Measurements & Calculations LVIDd: 5.6 cm LVOT diam: 2.5 cm LVIDs: 3.9 cm Ao root diam: 3.4 cm FS: 29.8 % Ao Arch Diam (Prox Trans): 3.6 cm IVSd: 0.91 cm LVPWd: 1.2 cm LV billingsley. diameter/BSA (cm/m^2): 2.4 LV sys. diameter/BSA (cm/m^2): 1.7 LA A2 area: 28.2 cm2 RA long axis: 6.8 cm LA A4 area: 39.7 cm2 RA area: 27.2 cm2 LA length (vol): 7.5 cm RA vol: 92.5 ml LA vol: 126.0 ml RA : 39.2 ml/m2 LA vol index: 53.5 ml/m2 IVC diam: 1.8 cm TAPSE: 1.6 cm Doppler Measurements & Calculations Ao V2 max: 101.6 cm/sec LVOT Max Alexandro: 64.0 cm/sec Ao V2 mean: 67.0 cm/sec LV V1 max P.6 mmHg Ao max P.1 mmHg LV V1 VTI: 16.4 cm Ao mean P.0 mmHg GILMAR(I,D): 3.9 cm2 Ao V2 VTI: 20.7 cm GILMAR(V,D): 3.1 cm2 sev ratio: 0.79 GILMAR indexed to BSA (cm^2/m^2): 1.6 MV E max alexandro: 79.4 cm/sec TR max alexandro: 253.6 cm/sec MV A max alexandro: 0.76 cm/sec TR max P.7 mmHg MV E/A: 104.0 PA V2 max: 77.9 cm/sec Med Peak E' Alexandro: 5.9 cm/sec PA V2 mean: 54.6 cm/sec E/E' med: 13.5 PA mean P.3 mmHg Lat Peak E' Alexandro: 10.3 cm/sec PA Accel Time: 0.11 sec E/E' lat: 7.7 E/e' average: 10.6 MV dec time: 0.17 sec MVA(VTI): 2.5 cm2 MV V2 mean: 53.7 cm/sec SV(LVOT): 80.4 ml MV mean P.4 mmHg MV V2 VTI: 32.2 cm Electronically signed by: Abisai March on Reading Physician:12/03/2022 02:18 PM
[2022-12-03 14:28] LABS: Appearance Urine UA CLEAR; Bilirubin Urine UA NEGATIVE (NEGATIVE); Color Urine UA YELLOW; Glucose Urine UA NEGATIVE (Negative); Ketones Urine UA NEGATIVE (NEGATIVE); Leukocyte Esterase Urine UA NEGATIVE (NEGATIVE); Nitrite Urine UA NEGATIVE (Negative); Occult Blood Urine UA NEGATIVE (Negative); Protein Urine UA 1+ (Negative); Urobilinogen Urine UA 0.2 E.U./dL (0.2); pH Urine UA 6.5 (4.5-8.0)
[2022-12-03 14:32] LABS: Bacteria Urine None Seen; Culture Indicated Urine Cult Not Indicated; RBC Urine None Seen (0-5/HPF); Urine Comments Microscopic Normal; WBC Urine None Seen (0-5/HPF)
[2022-12-03 15:20] LABS: Alanine Aminotransferase 27 IU/L (<50); Albumin 4.3 g/dL (3.5-5.0); Albumin Globulin Ratio 1.3 (1.0-2.8); Alkaline Phosphatase 65 U/L (38-126); Aspartate Aminotransferase 28 IU/L (17-59); BUN Creatinine Ratio 15.8 (6-22); Bilirubin Total 1.2 mg/dL (0.2-1.3); Blood Urea Nitrogen 18 mg/dL (9-20); Calcium 9.3 mg/dL (8.4-10.2); Carbon Dioxide 30 mmol/L (22-32); Chloride 104 mmol/L (98-107); Estimated Glomerular Filt Rate > 60 mL/min (>60); Globulin 3.3 g/dL (1.7-4.1); Glucose 94 mg/dL (80-110); HEMOLYSIS < 15 (0-50); Potassium 4.3 mmol/L (3.4-5.1); Sodium 144 mmol/L (137-145); Total Protein 7.6 g/dL (6.3-8.2)
[2022-12-05 00:07] LABS: HBsAg Screen Negative (Negative); Hepatitis A Antibody IgM Negative (Negative); Hepatitis B Core Antibody IgM Negative (Negative); Hepatitis C Antibody <0.1 s/co ratio (0.0-0.9)
== END ==
PROVIDERS: PCP Internal Medicine; Referring Provider Chiropractor; Visit Provider Chiropractor
DX: B15.0 Hepatitis A with hepatic coma (principal); I25.9 Chronic ischemic heart disease, unspecified; E11.9 Type 2 diabetes mellitus without complications; I08.1 Rheumatic disorders of both mitral and tricuspid valves
CPT/HCPCS: 36415; 80053; 80074; 81001; 93306

== ENCOUNTER → 2023-04-16 07:35 | Outpatient (CLI) | payer MEDICARE, OTHER, SELFPAY ==
--- NOTE | 2023-04-16 | DI.NM.S_ITS ---
PROCEDURE: NM EXERCISE TREADMILL NON NUC COMPARISON: None. INDICATIONS: Permanent atrial fibrillation FINDINGS: Rest ECG atrial fibrillation with PVCs in a bigeminal pattern. Felipe protocol 4:09, maximum heart rate 138 bpm (94% peak predicted), maximum blood pressure 206/108, 7.0 METS, ABBY +29%. Stress ECG atrial fibrillation with PVCs in a bigeminal pattern but increased to couplets and triplets and 1 episode NSVT 5 beats in early recovery. 7 minutes into recovery, rhythm returned to atrial fibrillation with PVCs in a bigeminal pattern. The patient did not complain of exercise-induced chest pain. IMPRESSION: Indeterminant study. The ST segments are not able to be interpreted due to the frequent PVCs. Hypertensive response to exercise. Reduced exercise capacity. Dictated by: Izabel Smith D.O. on 04/16/2023 at 16:39 Approved by: Izabel Smith D.O. on 04/16/2023 at 16:48
== END ==
PROVIDERS: PCP Internal Medicine; Referring Provider Internal Medicine Cardiovascular Disease; Visit Provider Internal Medicine Cardiovascular Disease
DX: I48.21 Permanent atrial fibrillation (principal); I49.3 Ventricular premature depolarization; I10 Essential (primary) hypertension
CPT/HCPCS: 93017